=== PATIENT | female | born 1990 | race Caucasian/White ===

== ENCOUNTER → 2018-03-08 16:07 | Outpatient (CLI) | payer BC, SELFPAY ==
[2018-03-08 15:12] VITALS: BMI 26.6
[2018-03-08 17:28] LABS: Progesterone Level 1.03 ng/mL (See Comment)
[2018-03-08 18:44] LABS: Follicle Stimulating Hormone 4.8 mIU/mL; T4 Free Direct 0.92 ng/dL (0.76-1.46); Thyroid Stim Hormone (TSH) 2.81 uIU/mL (0.358-3.74)
[2018-03-10 15:35] LABS: HPV Reflexed? NOT INDICATED
[2018-03-11 07:42] LABS: Testosterone Free 6.2 pg/mL (0.0-4.2)
--- OUTSIDE RECORDS SUMMARY | 2018-04-25 01:10 | XMS RPT_ITS ---
:1990 Author Organization OHIP Care Team Providers Name Role Phone JOSH CONNER Attending Unavailable JOSH CONNER Referring Unavailable Nedra Amaya Attending Unavailable Primay Care Physicia, No Referring Unavailable Nedra Amaya Attending Unavailable MarcanthNedra siddiqui Referring Unavailable Primay Care Physicia, No Primary Care Unavailable PROBLEMS PROBLEMS DATE TYPE CONDITION / CODE ATTENDING STATUS SOURCE 03/09/2018 Unknown N91.1 - Secondary Jose Luis Active [facility] amenorrhea / [facility] N91.1(ICD-10) Hospital Repository 03/09/2018 Unknown Z12.4 - Encounter Jose Luis, Active [facility] for screening for [facility] malignant neoplasm [facility] of cervix / Repository Z12.4(ICD-10) 03/08/2018 Unknown Z01.411 - Encounter Jose Luis Active [facility] for gynecological [facility] (general) (routine) Repository with abnormal findings / Z01.411(ICD-10) 03/08/2018 Unknown Z34.90 - Encounter Jose Luis Active [facility] for supervision of [facility] normal , Hospital unspecified, Repository unspecified trimester / Z34.90(ICD-10) 12/24/2017 Active Encounter for NA Active [facility] general adult [facility] medical examination Repository without abnormal findings / Z00.00(ICD-10) 12/09/2017 Active Unknown / JOSH CONNER Active [facility] UNK(Unknown) R [facility] Repository PROCEDURES PROCEDURES No Procedure Records FoundRESULTS RESULTS PROGESTERONE LEVEL Collected: 03/08/2018 Status: F Source: [place] 4:14 PM [facility] REPOSITORY TYPE CODE TESTS RESULT OUT OF REFERENCE UNITS RANGE LAB L509.4001 See Comment ng/mL Progesterone Normal 1.03 Result Comment: Progesterone Reference Table: UNITS Female: Follicular 0.15 - 1.40 ng/mL Luteal 3.34 - 25.56 ng/mL Mid-luteal 4.44 - 28.03 ng/mL Postmenopausal 0.0 - 0.73 ng/mL : 1st Trimester 11.22 - 90.00 ng/mL 2nd Trimester 25.55 - 89.40 ng/mL 3rd Trimester 48.40 -422.50 ng/mL Performed By: #### L509.4001 #### [facility] [address] [place], [address] THYROID STIM HORMONE Collected: 03/08/2018 Status: F Source: JOVITA (TSH) 4:14 PM [facility] REPOSITORY TYPE CODE TESTS RESULT OUT OF RANGE REFERENCE UNITS LAB L501.9520 0.358-3.74 uIU/mL Normal TSH 2.81 Performed By: #### L501.9520, L506.0400, L3100.5125, L3300.1750 #### [facility] [address] [place], [address] T4 FREE DIRECT Collected: 03/08/2018 Status: F Source: [place]OV[place] 4:14 PM [facility] REPOSITORY TYPE CODE TESTS RESULT OUT OF RANGE REFERENCE UNITS LAB L506.0400 0.76-1.46 ng/dL Normal T4 FREE 0.92 DIRECT Performed By: #### L501.9520, L506.0400, L3100.5125, L3300.1750 #### [facility] [address] [place], [address] FOLLICLE STIMULATING Collected: 03/08/2018 Status: F Source: JOVITA HORMONE 4:14 PM [facility] REPOSITORY TYPE CODE TESTS RESULT OUT OF RANGE REFERENCE UNITS LAB L3100.5125 mIU/mL Normal FSH 4.8 Result Comment: NORMAL REFERENCE RANGES FEMALE FOLLICULAR 2.3 - 12.6 mIU/mL MID-CYCLE PEAK 5.2 - 17.5 mIU/mL LUTEAL 1.7 - 12.9 mIU/mL POST-MENOPAUSAL ON MHT 5.9 - 72.8 mIU/mL NOT ON MHT 12.7 - 132.2 mlU/mL MALE 0.7 - 10.8 mIU/mL NEW TEST METHOD AND REFERENCE RANGES AUGUST 18, 2011 Performed By: #### L501.9520, L506.0400, L3100.5125, L3300.1750 #### [facility] [address] [place], [place], [id number] ESTRADIOL Collected: 03/08/2018 Status: F Source: [place] 4:14 PM [facility] REPOSITORY TYPE CODE TESTS RESULT OUT OF RANGE REFERENCE UNITS LAB L3300.1750 pg/mL Normal ESTRADIOL 62.0 Result Comment: NORMAL REFERENCE RANGES FEMALE FOLLICULAR 21.4 - 164.8 pg/mL MID-CYCLE PEAK 49.9 - 367.2 pg/mL LUTEAL 40.2 - 259.0 pg/mL POST-MENOPAUSAL ON MHT <11.0 - 462.1 pg/mL NOT ON MHT <11.0 - 58.3 pg/mL MALE <11.0 - 52.5 pg/mL NOTE: [facility] HAS CONFIRMED THE DRUG FULVETRANT (FASLODEX) MAY CAUSE FALSELY ELEVATED ESTRADIOL RESULTS WHEN USING THIS TEST METHOD. IF PATIENT IS TAKING FULVESTRANT AN ALTERNATIVE METHOD SHOULD BE USED TO DETERMINE ESTRADIOL CONCENTRATION. Performed By: #### L501.9520, L506.0400, L3100.5125, L3300.1750 #### [facility] [address] [place], [place], [address] TESTOSTERONE FREE Collected: 03/08/2018 Status: F Source: [place] 4:14 PM [facility] REPOSITORY TYPE CODE TESTS RESULT OUT OF REFERENCE UNITS RANGE LAB L3400.4800 0.0-4.2 pg/mL High TEST FR 6.2 [id number] Result Comment: Performed at: BN - [facility] [address] [id number] [place] Baker: Thomas Lugo MD, Phone: [phone] Performed By: #### L3400.4800 #### [facility] (refer to report for specific site) refer to report for address and phone number MARKER DELIVERY OFFICE VISIT Observed: 03/08/2018 Status: F Source: [place] REPORT 3:50 PM [facility] REPOSITORY [facility] [address] [place] [address] OFFICE VISIT Date of Service: 03/08/18 MR#: [id number] Acct: [id number] Name: NO OLIVERA Rep #: [id number] : 1990 Provider: Nedra Amaya MD Age/Sex: 27/F Location: [facility] Status: Signed Intake Vital Signs03/08/18 Height 5 ft 3 in 03/08/18 Weight: 150 lb 6 oz 03/08/18 Body Mass Index (BMI) 26.6 03/08/18 Blood Pressure 118/78 Intake Visit Reasons: ANNUAL Assembler Cards And Announcements Required: No Is patient in pain?: No Allergies amoxicillin Adverse Reaction (Intermediate, Verified 03/08/18 15:14) rash sulfamethoxazole [From Septra] Adverse Reaction (Intermediate, Verified 03/08/18 15:14) rash trimethoprim [From Septra] Adverse Reaction (Intermediate, Verified 03/08/18 15:14) rash Medications medroxyprogesterone 5 mg tablet 5 mg PO QDAY 5 Days #5 tab 03/08/18 [Rx Confirmed 03/08/18] Is last menstrual period known: No Post menopausal: No Patient : No : No Nurse's Note: Pt. states she stopped taking the BC pill about 7 months ago and has only had 1 period since. PFSH Surgical History H/O knee surgery (Acute) Family History Grandfather Myocardial infarction Social History current occupational status: employed current occupation: [employer] Smoking Status: Never smoker alcohol intake: never substance use type: does not use seatbelt use: always do you feel safe at home: Yes additional social history: [employer] Pregancy History 0 Elective abortions Hx Para Spontaneous abortions HPI ANNUAL: Details: NO OLIVERA is a 27 year old who presents for annual exam. she has a history of oligomenorrhea. she has been off an ocp x 7 months with no menses. Last PAP: 1 year ago seen at [facility] History of abnormal PAP: yes mild in past Female Reproductive History Cycle Length: >35 Questions: Metorrhagia: Yes, Sexually active: Yes, Dyspareunia: No, PCB: No Menopausal Symptoms: No hot flashes, No night sweats, No weight change, No mood changes, No difficulty concentrating, No sleep problems, No change in libido ROS Const Constitutional: Reports as per HPI; denies poor appetite, fatigue, increased appetite, weight gain, weight loss or night sweats Cardio Card: Denies chest pain Resp Resp: Denies dyspnea or cough GI GI: Reports as per HPI; denies bloating, abdominal pain, constipation, vomiting or nausea : Reports as per HPI and other; denies blood in urine, vaginal odor, vaginal itching, vaginal dryness, vaginal discharge, urinary urgency, urinary incontinence, urinary frequency, pelvic pain, painful urination, difficulty urinating, prolapse symptoms, nipple discharge or hot flashes Skin Skin/Breast: Denies breast pain, breast skin changes, nipple discharge, breast lump or changing lesions Psych Psych: Denies difficulty concentrating or change in sex drive Exam Const General: cooperative, healthy appearing, comfortable, no acute distress, well developed, well groomed [facility] Head: normal to inspection, normocephalic Ears: hearing grossly normal bilaterally, external ears normal Nose: external nose normal Face and sinus: normal facial exam Neck Neck: normal visual inspection, full ROM, no lymphadenopathy Thyroid: thyroid normal Chest Chest palpation AND inspection: normal inspection of the chest Breast inspection: normal inspection of the breasts, normal inspection of the axillae Breast palpation: normal palpation of the breasts, normal palpation of the axillae, no axillary lymphadenopathy Resp Effort AND Inspection: normal respiratory effort GI Inspection: normal to inspection, non-distended Palpation: no guarding, soft, no hepatosplenomegaly General: bladder normal to palpation External Female Exam: normal external appearance, normal appearance of the urethra, no lesions Urethra: normal appearance of the urethra, normal palpation Speculum Exam - Vagina: normal appearance of the vagina, normal vaginal discharge Speculum Exam - Cervix: normal appearance of the cervix, no cervical discharge, no lesions, nontender Bimanual Exam- Vagina AND Uterus: No cervical tenderness, normal bimanual exam, uterine size normal, bladder normal to palpation, uterine mobility normal, uterine consistency normal, uterus non-tender, no cervical motion tenderness Bimanual Exam- Adnexa, other: normal adnexae, no adnexal masses, adnexae non-tender Skin General: no rashes or lesions noted Neuro General: alert, moves all extremities, no focal motor deficits Extrem General: no pedal edema, normal to inspection Psych Appearance: grossly normal Mental Status: mental status grossly normal Affect: normal affect Speech and Movement: speech and movement normal Attitude: cooperative Assessment AND Plan Problems 1. Secondary amenorrhea N91.1 2. Encounter for gynecological examination with abnormal finding Z01.411 Plan Cervical cancer screening: pap done Breast cancer screening: clinical STD prevention and contraceptive options including their risks, benefits, and alternatives were reviewed with the patient and she chooses: [ ] Encouraged maintenance of a healthy weight and active lifestyle and handout given. Calcium/vitamin D recommendations provided. Annual exam handout including recommendations for good health guidelines and basic screening information given. Problem list up to date, see problem list details for any additional plan information. follow up in one year for annual health maintenance exam or sooner if needed. Orders Orders: Medications New: medroxyprogesterone if no menses by cycle day 35-40 ta5 mg PO QDAY 5 days 5 tabs 12RF ke provera Coding Level of Care Code Off vis,new,prev 18-39yrs Diagnoses Secondary amenorrhea N91.1 Encounter for gynecological examination with abnormal finding Z01.411 Gynecological examination findings: abnormal findings PRESENT 03/08/18 1550 <Electronically signed by Nedra Amaya MD> Date Nedra Amaya MD Cosigner Signature: Date (if applicable) CC: PAP I-G W/RFX Collected: 03/08/2018 Status: F Source: JOVITA HRHPV-APTIMA 2:30 PM [facility] REPOSITORY Order Comment: CYTOLOGY INFORMATION: - CLINICAL INFORMATION: ANNUAL - DATE LMP/MENOPAUSE: N/A - COLLECTION VIAL: Thin Prep Vial - FARM HELPER SOURCE: CERVICAL - COLLECTION TECHNIQUE: CX BROOM ONLY Specimen Comment: [id number] Specimen Comment: Source.............Cervix Specimen Comment: No. of containers..01 ThinPrep Vial TYPE CODE TESTS RESULT OUT OF RANGE REFERENCE UNITS LAB L7400.0800 . Normal DIAGN Comment Result Comment: NEGATIVE FOR INTRAEPITHELIAL LESION AND MALIGNANCY. LAB L7400.0900 . Normal ADEQ Comment Result Comment: Satisfactory for evaluation. Endocervical and/or squamous metaplastic cells (endocervical component) are present. LAB L7400.1400 . Normal PERFORM Comment Result Comment: Salena Kaur, Airline Station Agent (ASCP) LAB L7400.2575 . Normal TEST METHOD Comment Result Comment: This liquid based ThinPrep(R) pap test was screened with the use of an image guided system. LAB L7400.2600 . Normal . COMM LAB L7400.2700 . Normal PAPSMR Comment Result Comment: The Pap smear is a screening test designed to aid in the detection of premalignant and malignant conditions of the uterine cervix. It is not a diagnostic procedure and should not be used as the sole means of detecting cervical cancer. Both false-positive and false-negative reports do occur. LAB L7400.2800 . Normal HPV RFLX Comment Result Comment: The HPV DNA reflex criteria were not met with this specimen result therefore, no HPV testing was performed. Performed at: - [facility] [id number] Roll[place] Baker: Mercedes Shah MD, Phone: [phone] Performed By: #### L7400.0353 #### [facility] (refer to report for specific site) refer to report for address and phone number GROUP A STREP BY Collected: 01/19/2018 Status: F Source: [place] PCR 2:30 PM [facility] REPOSITORY TYPE CODE TESTS RESULT OUT OF REFERENCE UNITS RANGE LAB GASSRC Throat Swab GAS Specimen Source LAB PCRGAS Negative for Group A Strep Group A PCR Streptococcus by PCR. Result Comment: This test was developed and its performance characteristics determined by [facility]'s [facility] ([facility]). It has not been cleared or approved by the FDA. [facility] is regulated under CLIA as qualified to perform high-complexity testing. This test is used for clinical purposes. It should not be regarded as inv estigational or for research. Performed By: #### GASPCR #### [facility] [address] [place], [place] [address] PROGRESS Observed: 01/19/2018 Status: COMPLETED Source: [place] 2:17 PM [facility] REPOSITORY HNO ID: [id number] Author: Gissel Russell (Pa) Service: (none) Author Type: Physician Child Protective Investigator Type: Progress Notes Filed: 01/19/2018 2:35 PM Note Text: Subjective HPI HPI No Olivera is a 27 year old female who presents today for CC of throat pain and headaches that started Thursday. Notes that her and her noticed some spots on her tonsils. No history of recent strep or recurrent strep. Pt has tried advil, which helped the headaches to some degree. BP 104/66 Pulse 60 Temp 36.2 ?C (97.2 ?F) (Tympanic) Resp 16 Wt 69.1 kg (152 lb 6.4 oz) SpO2 97% BMI 27.00 kg/m? ALLERGIES Allergen Reactions - Amoxicillin Rash Pt. and Grandma usure of severity - Septra [Sulfamethox* Rash Pt. and Grandma unsure of severity. ACTIVE PROBLEM LIST (none) - all problems resolved or deleted Family History Problem Relation Age of Onset - Heart Paternal Grandfather fatal [place] @ 43yrs of age Social History Marital status: Spouse name: Vahid Years of education: 10 Number of children: 0 Occupational History Occupation Employer Comment [employer]* Social History Main Topics Smoking status: Never Smoker Smokeless tobacco: Never Used Alcohol use: No Drug use: No Sexual activity: Yes Partners with: Male control/protection: Pill Review of Systems Constitutional: Positive for diaphoresis (Burning up a couple nights ago- while sleeping). Negative for chills, fever and malaise/fatigue. HENT: Positive for sore throat. Negative for congestion, ear pain and sinus pain. Respiratory: Negative for cough, sputum production, shortness of breath and wheezing. Cardiovascular: Negative for chest pain. Neurological: Negative for headaches. Objective Physical Exam Constitutional: She is oriented to person, place, and time and well-developed, well-nourished, and in no distress. Vital signs are normal. HENT: Head: Normocephalic. Right Ear: Tympanic membrane, external ear and ear canal normal. No drainage. Tympanic membrane is not perforated, not erythematous, not retracted and not bulging. No middle ear effusion. Left Ear: Ear canal normal. No drainage. Tympanic membrane is not perforated, not erythematous, not retracted and not bulging. No middle ear effusion. Nose: No rhinorrhea. Right sinus exhibits no maxillary sinus tenderness and no frontal sinus tenderness. Left sinus exhibits no maxillary sinus tenderness and no frontal sinus tenderness. Mouth/Throat: Uvula is midline and mucous membranes are normal. Oropharyngeal exudate (Black speck noted on L tonsil), posterior oropharyngeal edema (Mildly inflamed tonsils (R>L) - with small cryptic like 'spots' noted on R tonsil) and posterior oropharyngeal erythema (Mildly injected) present. No tonsillar abscesses. Eyes: Conjunctivae and lids are normal. Cardiovascular: Normal rate, regular rhythm, S1 normal and S2 normal. Exam reveals no friction rub. Pulmonary/Chest: Effort normal and breath sounds normal. She has no wheezes. She has no rhonchi. She has no rales. Lymphadenopathy: Head (right side): No submental, no submandibular, no tonsillar, no preauricular, no posterior auricular and no occipital adenopathy present. Head (left side): No submental, no submandibular, no tonsillar, no preauricular, no posterior auricular and no occipital adenopathy present. Right cervical: No superficial cervical and no posterior cervical adenopathy present. Left cervical: No superficial cervical and no posterior cervical adenopathy present. Neurological: She is oriented to person, place, and time. ASSESSMENT/PLAN: 1. Acute pharyngitis, unspecified etiology - ICD9: 462, ICD10: J02.9 (primary diagnosis) - suspect viral - Rapid Strep negative in the office today and Throat culture pending - Discussed supportive care treatment with fluids, rest and analgesia. - The patient should follow up in one week if symptoms persist or worsen 2. Sore throat - ICD9: 462, ICD10: J02.9 - See above; Call back if drooling, increased temperature, symptoms of dehydration and/or still sick in one week - RAPID STREP TEST B/O - GROUP A STREPTOCOCCUS BY PCR Reviewed red flags with patient and when to seek care sooner. The patient indicates understanding of these issues and agrees with the plan. Gissel Russell PA-C CNOV Observed: 01/19/2018 Status: COMPLETED Source: [place] 2:15 PM [facility] REPOSITORY Office Visit ([facility]) JARODNO ([id number]) 1990 F Date Time Provider Department 01/19/18 2:15 PM GISSEL RUSSELL (YOVANI) [facility] During your visit today, we recorded the following information about you: Temperature Pulse Respiration Blood pressure 97.2 degrees 60/minute 16/minute 104/66 Weight 69.1 kg Gissel Russell PA-C 01/19/2018 2:35 PM Signed Subjective HPI HPI No Barahona Jarod is a 27 year old female who presents today for CC of throat pain and headaches that started Thursday. Notes that her and her noticed some spots on her tonsils. No history of recent strep or recurrent strep. Pt has tried advil, which helped the headaches to some degree. BP 104/66 Pulse 60 Temp 36.2 ?C (97.2 ?F) (Tympanic) Resp 16 Wt 69.1 kg (152 lb 6.4 oz) SpO2 97% BMI 27.00 kg/m? ALLERGIES Allergen Reactions - Amoxicillin Rash Pt. and Grandma usure of severity - Septra [Sulfamethox* Rash Pt. and Grandma unsure of severity. ACTIVE PROBLEM LIST (none) - all problems resolved or deleted Family History Problem Relation Age of Onset - Heart Paternal Grandfather fatal [place] @ 43yrs of age Social History Marital status: Spouse name: Vahid Years of education: 10 Number of children: 0 Occupational History Occupation Employer Comment [employer]* Social History Main Topics Smoking status: Never Smoker Smokeless tobacco: Never Used Alcohol use: No Drug use: No Sexual activity: Yes Partners with: Male control/protection: Pill Review of Systems Constitutional: Positive for diaphoresis (Burning up a couple nights ago- while sleeping). Negative for chills, fever and malaise/fatigue. HENT: Positive for sore throat. Negative for congestion, ear pain and sinus pain. Respiratory: Negative for cough, sputum production, shortness of breath and wheezing. Cardiovascular: Negative for chest pain. Neurological: Negative for headaches. Objective Physical Exam Constitutional: She is oriented to person, place, and time and well-developed, well-nourished, and in no distress. Vital signs are normal. HENT: Head: Normocephalic. Right Ear: Tympanic membrane, external ear and ear canal normal. No drainage. Tympanic membrane is not perforated, not erythematous, not retracted and not bulging. No middle ear effusion. Left Ear: Ear canal normal. No drainage. Tympanic membrane is not perforated, not erythematous, not retracted and not bulging. No middle ear effusion. Nose: No rhinorrhea. Right sinus exhibits no maxillary sinus tenderness and no frontal sinus tenderness. Left sinus exhibits no maxillary sinus tenderness and no frontal sinus tenderness. Mouth/Throat: Uvula is midline and mucous membranes are normal. Oropharyngeal exudate (Black speck noted on L tonsil), posterior oropharyngeal edema (Mildly inflamed tonsils (R>L) - with small cryptic like 'spots' noted on R tonsil) and posterior oropharyngeal erythema (Mildly injected) present. No tonsillar abscesses. Eyes: Conjunctivae and lids are normal. Cardiovascular: Normal rate, regular rhythm, S1 normal and S2 normal. Exam reveals no friction rub. Pulmonary/Chest: Effort normal and breath sounds normal. She has no wheezes. She has no rhonchi. She has no rales. Lymphadenopathy: Head (right side): No submental, no submandibular, no tonsillar, no preauricular, no posterior auricular and no occipital adenopathy present. Head (left side): No submental, no submandibular, no tonsillar, no preauricular, no posterior auricular and no occipital adenopathy present. Right cervical: No superficial cervical and no posterior cervical adenopathy present. Left cervical: No superficial cervical and no posterior cervical adenopathy present. Neurological: She is oriented to person, place, and time. ASSESSMENT/PLAN: 1. Acute pharyngitis, unspecified etiology - ICD9: 462, ICD10: J02.9 (primary diagnosis) - suspect viral - Rapid Strep negative in the office today and Throat culture pending - Discussed supportive care treatment with fluids, rest and analgesia. - The patient should follow up in one week if symptoms persist or worsen 2. Sore throat - ICD9: 462, ICD10: J02.9 - See above; Call back if drooling, increased temperature, symptoms of dehydration and/or still sick in one week - RAPID STREP TEST B/O - GROUP A STREPTOCOCCUS BY PCR Reviewed red flags with patient and when to seek care sooner. The patient indicates understanding of these issues and agrees with the plan. ROBERTO Garcia PA-C 01/19/2018 2:29 PM Signed PHARYNGITIS: Inflammation and infection of the pharynx that can be caused by a variety of germs. TREATMENT General Measures: - Laboratory throat culture and blood count may be done to determine type of infection - Home care is usually sufficient - Hospitalization for pharyngitis caused by diphtheria or hemophilus bacteria - Use gargles to relieve throat pain. Prepare double-strength tea, hot or cold, or a salt-water solution (1 teaspoon salt in 8 oz. warm water). Use to gargle as often as you wish - Use a cool-mist, ultrasonic humidifier to increase air moisture. This will relieve the dry, tight feeling in the throat. Clean humidifier daily - If the glands are large and tender, apply moist, warm soaks at least 4 times a day for 30 to 60 minutes. The compresses will be more effective if they are kept warm. Be careful not to burn the skin. - Replace your toothbrush. It may harbor germs. - Until infection is gone, use separate washcloths; don't share food. Medication: - For minor discomfort, you may use non-prescription drugs such as acetaminophen. Don't give aspirin to a child for any viral illness. Studies link its use with the development of Fara's syndrome. - Non-prescription throat lozenges may help ease discomfort. - Antibiotics or antifungal agents to fight bacterial or fungal infections. Be sure to finish entire course of prescribed antibiotics to avoid complications to heart or kidney. Diet: - Extra fluids are necessary. Drink at least 8 glasses of fluid daily, more for high fevers. - If swallowing solid food is painful, try a liquid or soft diet for a few days. Notify your primary care physician's office or go to the nearest emergency room if the following occur during treatment: Breathing or swallowing difficulty Fever; severe headache Thick mucus drainage from the nose Cough that produces green, yellow, brown, or bloody sputum Skin rash Dark urine Chest pain Referring Provider: SELF [200] Allergies As of Date: 01/19/2018 Noted Allergy Reaction AMOXICILLIN 12/25/2004 2 - Rash Comments: Pt. and Judson usure of severity SEPTRA (SULFAMETHOXAZOLE-TRIMETHO*12/25/2004 2 - Rash Comments: Pt. and Judson unsure of severity. 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 TREATMENT General Measures: - Laboratory throat culture and blood count may be done to determine type of infection - Home care is usually sufficient - Hospitalization for pharyngitis caused by diphtheria or hemophilus bacteria - Use gargles to relieve throat pain. Prepare double-strength tea, hot or cold, or a salt-water solution (1 teaspoon salt in 8 oz. warm water). Use to gargle as often as you wish - Use a cool-mist, ultrasonic humidifier to increase air moisture. This will relieve the dry, tight feeling in the throat. Clean humidifier daily - If the glands are large and tender, apply moist, warm soaks at least 4 times a day for 30 to 60 minutes. The compresses will be more effective if they are kept warm. Be careful not to burn the skin. - Replace your toothbrush. It may harbor germs. - Until infection is gone, use separate washcloths; don't share food. Medication: - For minor discomfort, you may use non-prescription drugs such as acetaminophen. Don't give aspirin to a child for any viral illness. Studies link its use with the development of Fara's syndrome. - Non-prescription throat lozenges may help ease discomfort. - Antibiotics or antifungal agents to fight bacterial or fungal infections. Be sure to finish entire course of prescribed antibiotics to avoid complications to heart or kidney. Diet: - Extra fluids are necessary. Drink at least 8 glasses of fluid daily, more for high fevers. - If swallowing solid food is painful, try a liquid or soft diet for a few days. Notify your primary care physician's office or go to the nearest emergency room if the following occur during treatment: Breathing or swallowing difficulty Fever; severe headache Thick mucus drainage from the nose Cough that produces green, yellow, brown, or bloody sputum Skin rash Dark urine Chest pain Encounter Status:Closed by GISSEL RUSSELL on 01/19/18 GLUCOSE Collected: 12/24/2017 Status: F Source: [place] 11:13 AM [facility] REPOSITORY TYPE CODE TESTS RESULT OUT OF REFERENCE UNITS RANGE LAB GLU 74-99 mg/dL Glucose 77 Result Comment: The [place] Diabetes Association (ADA) provides guidance for cutoff values for fasting glucose and random glucose. The ADA defines fasting as no caloric intake for at least 8 hours. Fas ting plasma glucose results between 100 to 125 mg/dL indicate increased risk for diabetes (prediabetes). Fasting plasma glucose results greater than or equal to 126 mg/dL meet the criteria for diagnosis of diabetes. In the absence of unequivocal hyperglycemia, results should be confirmed by repeat testing. In a patient with classic symptoms of hyperglycemia or hyperglycemic crisis, random plasma glucose results greater than or equal to 200 mg/dL meet the criteria for diagnosis of diabetes. Reference: Standards of Medical Care in Diabetes 2016, [place] Diabetes Association. Diabetes Care. 2016.39(Suppl 1). Performed By: #### GLU, LIPB #### [facility] [address] [place], [place] [address] LIPID PANEL, BASIC Collected: 12/24/2017 Status: F Source: [place] 11:13 AM [facility] REPOSITORY TYPE CODE TESTS RESULT OUT OF REFERENCE UNITS RANGE LAB CHOL <200 mg/dL Cholesterol 151 Result Comment: <200 mg/dL, Desirable 200-239 mg/dL, Borderline high >239 mg/dL, High LAB TRIGLY <150 mg/dL Triglyceride 29 Result Comment: <150 mg/dL, Normal 150-199 mg/dL, Borderline high 200-499 mg/dL, High >499 mg/dL, Very high LAB HDL >39 mg/dL HDL-Cholesterol 60 Result Comment: 40-59 mg/dL, Acceptable >59 mg/dL, High: Negative risk factor for coronary heart disease <40 mg/dL, Low: Positive risk factor for coronary heart disease LAB LDL <100 mg/dL LDL-Cholesterol 85 Result Comment: <100 mg/dL, Optimal 100-129 mg/dL, Near optimal/above optimal 130-159 mg/dL, Borderline high 160-189 mg/dL, High >189 mg/dL, Very high Secondary prevention optimal LDL Cholesterol levels are recommended to be < 70 mg/dL LAB NONHDL <130 mg/dL Non HDL Cholesterol 91 Result Comment: <130 mg/dL, Optimal 130-159 mg/dL, Near optimal/above optimal 160-189 mg/dL, Borderline high 190-219 mg/dL, High >219 mg/dL, Very high Secondary prevention optimal non HDL Cholesterol levels are recommended to be < 100 mg/dL LAB FT hrs Fasting Time 12 LAB VLDL <30 mg/dL VLDL Cholesterol 6 LAB TCHDL <5.10 TC:HDL Ratio 2.52 LAB LDLHDL <2.54 LDL:HDL Ratio 1.42 Result Comment: Reference: 1. National Cholesterol Education Program ATP III Guideline At-A-Glance Quick Desk Reference: National Heart, Lung, and Blood Cyrus. National Institutes of Health. 2001: NIH Publication No. 01-3305. 2. An International Atherosclerosis Society position paper: global recommendations for the management of dyslipidemia: executive summary, Atherosclerosis. 2014: 232(2):410-413. Performed By: #### GLU, LIPB #### [facility] [address] [place] [id number] PROGRESS Observed: 12/09/2017 Status: COMPLETED Source: [place] 4:58 PM [facility] REPOSITORY HNO ID: [id number] Author: Josh Conner Service: (none) Author Type: Physician Type: Progress Notes Filed: 12/10/2017 8:16 AM Note Text: Chief Complaint Patient presents with: Physical: forms for work HPI No Olivera is a 27 year old female who presents here today for a routine physical for work.. 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 No other health problems. ACTIVE PROBLEM LIST (none) - all problems resolved or deleted she has come off control and has yet to Past medical history, appointments, medications, allergies reviewed. Previous Medical History PAST MEDICAL HISTORY Diagnosis Date - Exercise induced bronchospasm ASTHMA EXERCISE INDUCE BRONCHOSPASM - PMH - PAST MEDICAL HISTORY OF Color Vision - Normal Previous Surgical History PAST SURGICAL HISTORY Procedure Laterality Date - PAST SURGICAL HISTORY OF Removal of glass left knee Family History FAMILY HISTORY Problem Relation Age of Onset - Heart Paternal Grandfather fatal [place] @ 43yrs of age Patient Allergies ALLERGIES Allergen Reactions - Amoxicillin Rash Pt. and Grandma usure of severity - Septra [Sulfamethox* Rash Pt. and Grandma unsure of severity. Current Medications Current Outpatient Prescriptions on File Prior to Visit: norgestimate 0.25 mg-ethinyl estradiol 35 mcg (SPRINTEC) 0.25- 35 mg-mcg per tablet Take 1 tablet by mouth once daily. (Patient not taking: Reported on 12/09/2017 ) No current facility-administered medications on file prior to visit. Social History Social History Marital status: Spouse name: Vahid Years of education: 10 Number of children: 0 Occupational History Occupation Employer Comment [employer] Social History Main Topics Smoking status: Never Smoker Smokeless tobacco: Never Used Alcohol use: No Drug use: No Sexual activity: Yes Partners with: Male control/protection: Pill .ROS: General: Feels well, no weight changes, fever, chills. HEENT: No sinus congestion, earache, sore throat. Cardiac: No chest pain, palpitations, shortness of breath Resp: No cough, wheeze. GI: No reflux symptoms, food intolerance, bowel changes. : No urinary frequency, dysuria. MS: No pain or joint complaints. PHYSICAL EXAMINATION BP 110/64 Pulse 65 Ht 160 cm (5' 3) Wt 69.4 kg (153 lb) LMP 08/10/2017 BMI 27.10 kg/m? General: Alert and oriented, no distress, pleasant and cooperative. Heart: Regular, normal S1 and S2, no murmurs, rubs, or gallops Lungs: Clear to auscultation bilaterally Abdomen: Benign Extremities: Feet/ankles without edema, posterior tibial pulses full and symmetrical Health Maintenance List DTAP,TDAP,TD(7 - Td) due on 10/29/2015 INFLUENZA(1) due on 11/28/2017 PAP EVERY 3 YEARS (21-30 YEAR OLDS) due on 01/29/2019 HPV VACCINE Completed Data reviewed Lab Results Component Value Date/Time CHOL 190 03/22/2013 11:08 AM HDL 67 03/22/2013 11:08 AM LDL 94 03/22/2013 11:08 AM Assessment/Plan: (Z00.00) Well adult exam (primary encounter diagnosis) Comment: she's in good health. Plan: exam as her employer requires. She's f/u with the ob on the menses. Office Visit on 12/09/17 -LIPID PANEL BASIC -GLUCOSE RANDOM BLD No medications selected for refill. RTO: as above Josh Conner MD CNOV Observed: 12/09/2017 Status: COMPLETED Source: [place] 4:20 PM [facility] REPOSITORY Office Visit (FPWADS) NO OLIVERA ([id number]) 1990 F Date Time Provider Department 12/09/17 4:20 PM JOSH CONNER During your visit today, we recorded the following information about you: Pulse Blood pressure Weight Height 65/minute 110/64 69.4 kg 1.6 m Last Period 08/10/17 Josh Conner MD 12/10/2017 8:16 AM Signed Chief Complaint Patient presents with: Physical: forms for work HPI No Olivera is a 27 year old female who presents here today for a routine physical for work.. 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 No other health problems. ACTIVE PROBLEM LIST (none) - all problems resolved or deleted she has come off control and has yet to Past medical history, appointments, medications, allergies reviewed. Previous Medical History PAST MEDICAL HISTORY Diagnosis Date - Exercise induced bronchospasm ASTHMA EXERCISE INDUCE BRONCHOSPASM - PMH - PAST MEDICAL HISTORY OF Color Vision - Normal Previous Surgical History PAST SURGICAL HISTORY Procedure Laterality Date - PAST SURGICAL HISTORY OF Removal of glass left knee Family History FAMILY HISTORY Problem Relation Age of Onset - Heart Paternal Grandfather fatal [place] @ 43yrs of age Patient Allergies ALLERGIES Allergen Reactions - Amoxicillin Rash Pt. and Grandma usure of severity - Septra [Sulfamethox* Rash Pt. and Grandma unsure of severity. Current Medications Current Outpatient Prescriptions on File Prior to Visit: norgestimate 0.25 mg-ethinyl estradiol 35 mcg (SPRINTEC) 0.25- 35 mg-mcg per tablet Take 1 tablet by mouth once daily. (Patient not taking: Reported on 12/09/2017 ) No current facility-administered medications on file prior to visit. Social History Social History Marital status: Spouse name: Vahid Years of education: 10 Number of children: 0 Occupational History Occupation Employer Comment [employer]* Social History Main Topics Smoking status: Never Smoker Smokeless tobacco: Never Used Alcohol use: No Drug use: No Sexual activity: Yes Partners with: Male control/protection: Pill .ROS: General: Feels well, no weight changes, fever, chills. HEENT: No sinus congestion, earache, sore throat. Cardiac: No chest pain, palpitations, shortness of breath Resp: No cough, wheeze. GI: No reflux symptoms, food intolerance, bowel changes. : No urinary frequency, dysuria. MS: No pain or joint complaints. PHYSICAL EXAMINATION BP 110/64 Pulse 65 Ht 160 cm (5' 3) Wt 69.4 kg (153 lb) LMP 08/10/2017 BMI 27.10 kg/m? General: Alert and oriented, no distress, pleasant and cooperative. Heart: Regular, normal S1 and S2, no murmurs, rubs, or gallops Lungs: Clear to auscultation bilaterally Abdomen: Benign Extremities: Feet/ankles without edema, posterior tibial pulses full and symmetrical Health Maintenance List DTAP,TDAP,TD(7 - Td) due on 10/29/2015 INFLUENZA(1) due on 11/28/2017 PAP EVERY 3 YEARS (21-30 YEAR OLDS) due on 01/29/2019 HPV VACCINE Completed Data reviewed Lab Results Component Value Date/Time CHOL 190 03/22/2013 11:08 AM HDL 67 03/22/2013 11:08 AM LDL 94 03/22/2013 11:08 AM Assessment/Plan: (Z00.00) Well adult exam (primary encounter diagnosis) Comment: she's in good health. Plan: exam as her employer requires. She's f/u with the ob on the menses. Office Visit on 12/09/17 -LIPID PANEL BASIC -GLUCOSE RANDOM BLD No medications selected for refill. RTO: as above Josh Conner MD Referring Provider: SELF [200] Allergies As of Date: 12/09/2017 Noted Allergy Reaction AMOXICILLIN 12/25/2004 2 - Rash Comments: Pt. and Grandma usure of severity SEPTRA (SULFAMETHOXAZOLE-TRIMETHO*12/25/2004 2 - Rash Comments: Pt. and Grandma unsure of severity. 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 Patient not taking: Reported on 12/09/2017 Disc: Reason for discontinue is not on file. Encounter Status:Closed by FATIMAH CONNER MD on 12/10/17 CNCO Observed: 10/12/2017 Status: COMPLETED Source: [place] 12:00 AM [facility] REPOSITORY Letter Text Jovita Ean Quijano D.O. Department of Pediatrics [address] [place] [address] October 12, 2017 No Olivera To Whom It May Concern: Please allow No to have an adjustable desk for standing to support her back and posture Sincerely, ALLERGIES ALLERGIES DATE TYPE / CODE NAME / CODE REACTION SEVERITY SOURCE 03/08/2018 Drug sulfamethoxazole/F Rash [place] [facility]416 [id number](RXNORM) [facility] [id number]([facility] ED CT) Repository 03/08/2018 Drug trimethoprim/F0060 Rash [place] [facility]416 53187(RXNORM) [facility] 397123([facility] ED CT) Repository 03/08/2018 Drug amoxicillin/F05216 Rash [place] [facility]416 3675(RXNORM) [facility] [id number]([facility] ED CT) Repository 12/25/2004 DRUG AMOXICILLIN RASH [facility] INGREDI/[address] [id number](SN Repository ED CT) 12/25/2004 DRUG/[id number] SULFAMETHOXAZOLE-T RASH [facility] 003(SNOMED RIMETHOPRIM [address]) Repository ENCOUNTERS ENCOUNTERS ADMIT/DISCHARGE ACCOUNT ADMITTING ENCOUNTER LOCATION SOURCE NUMBER CLASS 03/08/2018 [id number] Ambulatory [facility] ing:LAB Repository 03/08/2018/03/08/20 [id number] Ambulatory BMSBuilding:B [address] Repository 01/19/2018/01/21/20 [id number] Ambulatory [address] Repository 12/24/2017/12/25/19 [id number] Ambulatory [address] Repository 12/09/2017/12/11/19 [id number] Ambulatory [address] Repository PAYERS PAYERS ENCOUNTER GUARANTOR PAYER SUBSCRIBER SOURCE 03/08/2018 NO T Primary NO Hussein [id number] XOCHITL Insurance:ANTHEMPolic MALTADOB: [facility] kamryn MANN Number: [id number] Hospital [address]Gez: 330 [id number] Repository [phone] () Date:[id number] [place] [address]NQ: 03/08/2018 Secondary NOT GIVENUNK Jovita Insurance:SELF PAY [facility] Number: Effective Repository Date:2018-03-08 03/08/2018 [facility] [place] [id number] XOCHITL Insurance:ANTHEMPolic MALTADOB: [facility] kamryn MANN y Number: [id number] Hospital [address]Rdc: 330 [id number] Repository [phone] () Date:[id number] [place] [address]GQ: 03/08/2018 Secondary NOT GIVENUNK J[place] Insurance:SELF PAY [facility] Number: Effective Repository Date:2018-03-08
== END ==
PROVIDERS: Referring Provider Obstetrics & Gynecology; Visit Provider Obstetrics & Gynecology
DX: Z12.4 Encounter for screening for malignant neoplasm of cervix (principal); N91.1 Secondary amenorrhea
CPT/HCPCS: 36415; 82670; 83001; 84144; 84402; 84439; 84443; 87624; 88175; G0145

== ENCOUNTER → 2018-04-22 14:43 | Outpatient (CLI) | payer BC, SELFPAY ==
[2018-03-08 15:12] VITALS: BMI 26.6
[2018-04-22 16:51] LABS: Progesterone Level 0.87 ng/mL (See Comment)
== END ==
PROVIDERS: Referring Provider Obstetrics & Gynecology; Visit Provider Obstetrics & Gynecology
DX: N91.1 Secondary amenorrhea (principal)
CPT/HCPCS: 36415; 84144

== ENCOUNTER → 2018-06-28 16:05 | Outpatient (CLI) | payer BC, SELFPAY ==
[2018-03-08 15:12] VITALS: BMI 26.6
[2018-06-28 17:53] LABS: Progesterone Level 0.56 ng/mL (See Comment)
== END ==
PROVIDERS: Referring Provider Obstetrics & Gynecology; Visit Provider Obstetrics & Gynecology
DX: N97.9 Female infertility, unspecified (principal)
CPT/HCPCS: 36415; 84144

== ENCOUNTER → 2018-11-19 15:08 | Outpatient (CLI) | payer BC, SELFPAY ==
[2018-03-08 15:12] VITALS: BMI 26.6
[2018-11-19 16:11] LABS: Hematocrit 43.5 % (37-47); Hemoglobin 14.4 g/dL (12.0-15.0); Mean Corp Hgb Conc 33.1 g/dL (32-36); Mean Corpuscular Hgb 30.6 pg (27.0-32.0); Mean Corpuscular Volume 92.6 fL (81-99); Mean Platelet Vol. 9.5 fl (6.2-12.0); Platelet Count 352 K/mm3 (150-450); RBC Distribution Width CV 11.9 % (11.6-14.6); White Blood Count 8.1 K/mm3 (4.4-11.0)
[2018-11-19 16:50] LABS: hCG Titer Quant., Serum < 1 mIU/mL (1-3)
[2018-11-19 17:07] LABS: Progesterone Level 0.47 ng/mL (See Comment); Vitamin D,25 Hydroxy 30.2 ng/mL (29.95-100.01)
[2018-11-19 17:19] LABS: AST(SGOT) 11 U/L (15-37); Alanine Aminotransfer ALT/SGPT 25 U/L (13-56); Alkaline Phosphatase 48 U/L (45-117); Anion Gap 8 (5-15); BUN 14 mg/dL (7-18); Bilirubin, Direct 0.09 mg/dL (0.00-0.30); Chloride 111 mmol/L (98-107); Creatinine, Serum 0.88 mg/dL (0.55-1.02); EST Glomerular Filtration Rate 83 mL/min (>60); Est Glom Filt Rate - Afr Amer 100 mL/min (>60); Estradiol 40.7 pg/mL; Follicle Stimulating Hormone 4.5 mIU/mL; Globulin 3.5 g/dL (2.2-4.2); Glucose 99 mg/dL (74-106); Luteinizing Hormone 6.4 mIU/mL; Phosphorus 2.9 mg/dL (2.5-4.9); Potassium 3.9 mmol/L (3.5-5.1); Prolactin 16.3 ng/mL; Protein, Total 7.5 g/dL (6.4-8.2); Sodium Level 142 mmol/L (136-145); T4 Free Direct 0.92 ng/dL (0.76-1.46); Thyroid Stim Hormone (TSH) 1.16 uIU/mL (0.358-3.74)
[2018-11-24 17:02] LABS: 17-Hydroxyprogesterone 80 ng/dL (.)
[2018-11-27 12:07] LABS: DHEA Sulfate 416.4 ug/dL (84.8-378.0)
[2018-11-28 09:14] LABS: Anti-Mullerian Hormone,Serum 23.2 ng/mL (.); V-Zoster IgG (Immunity) 1983 index (Immune >165)
== END ==
PROVIDERS: Referring Provider Obstetrics & Gynecology Reproductive Endocrinology; Visit Provider Obstetrics & Gynecology Reproductive Endocrinology
DX: Z01.83 Encounter for blood typing (principal); Z31.41 Encounter for fertility testing; Z11.59 Encounter for screening for other viral diseases; Z11.9 Encounter for screening for infectious and parasitic diseases, unspecified; Z32.00 Encounter for pregnancy test, result unknown; N91.4 Secondary oligomenorrhea; E55.9 Vitamin D deficiency, unspecified
CPT/HCPCS: 80048; 80076; 82306; 82627; 82670; 83001; 83002; 83498; 83516; 84100; 84144; 84146; 84403; 84439; 84443; 84702; 85027; 86762; 86787; 86900; 86901; 82626

== ENCOUNTER → 2018-12-31 12:53 | Outpatient (CLI) | payer BC, SELFPAY ==
[2018-03-08 15:12] VITALS: BMI 26.6
== END ==
PROVIDERS: Referring Provider Psychiatry & Neurology Geriatric Psychiatry; Visit Provider Psychiatry & Neurology Geriatric Psychiatry
DX: E28.2 Polycystic ovarian syndrome (principal)

== ENCOUNTER → 2019-01-04 07:15 | Outpatient (CLI) | payer BC, SELFPAY ==
[2018-03-08 15:12] VITALS: BMI 26.6
[2019-01-04 08:23] LABS: Glucose 75GTT - Fasting 94 mg/dL (70-99)
[2019-01-04 08:26] LABS: AST(SGOT) 10 U/L (15-37); Alanine Aminotransfer ALT/SGPT 20 U/L (13-56); Albumin, Serum 4.1 g/dL (3.2-5.0); Alkaline Phosphatase 51 U/L (45-117); Anion Gap 4 (5-15); BUN 12 mg/dL (7-18); BUN/Creat Ratio 14.5 RATIO (10-20); Calcium,Total 9.1 mg/dL (8.5-10.1); Chloride 108 mmol/L (98-107); Creatinine, Serum 0.83 mg/dL (0.55-1.02); EST Glomerular Filtration Rate 88 mL/min (>60); Est Glom Filt Rate - Afr Amer 106 mL/min (>60); Globulin 3.4 g/dL (2.2-4.2); Glucose 94 mg/dL (74-106); Phosphorus 3.6 mg/dL (2.5-4.9); Potassium 4.2 mmol/L (3.5-5.1); Protein, Total 7.5 g/dL (6.4-8.2); Sodium Level 139 mmol/L (136-145)
[2019-01-04 08:51] LABS: Insulin 9.8 mU/L (2.6-37.6)
[2019-01-04 09:09] LABS: Glucose 75GTT - 30 minutes 147 mg/dL (100-160)
[2019-01-04 10:26] LABS: Glucose 75GTT - 60 minutes 58 mg/dL (100-160)
[2019-01-04 10:29] LABS: Glucose 75GTT - 120 minutes 63 mg/dL (70-140)
== END ==
PROVIDERS: Referring Provider Psychiatry & Neurology Geriatric Psychiatry; Visit Provider Psychiatry & Neurology Geriatric Psychiatry
DX: E28.2 Polycystic ovarian syndrome (principal)
CPT/HCPCS: 36415; 80048; 80076; 82951; 82952; 83525; 84100

== ENCOUNTER → 2019-09-05 08:22 | Outpatient (CLI) | payer BC, SELFPAY ==
[2018-03-08 15:12] VITALS: BMI 26.6
[2019-09-05 09:00] LABS: Progesterone Level 21.62 ng/mL (See Comment)
[2019-09-05 09:08] LABS: Estradiol 159.4 pg/mL
== END ==
DX: E28.9 Ovarian dysfunction, unspecified (principal)
CPT/HCPCS: 36415; 82670; 84144

== ENCOUNTER → 2019-09-09 08:39 | Outpatient (CLI) | payer BC, SELFPAY ==
[2018-03-08 15:12] VITALS: BMI 26.6
[2019-09-09 09:20] LABS: Progesterone Level 24.24 ng/mL (See Comment); hCG Titer Quant., Serum 131 mIU/mL (1-3)
== END ==
DX: Z32.00 Encounter for pregnancy test, result unknown (principal)
CPT/HCPCS: 36415; 84144; 84702

== ENCOUNTER → 2019-09-12 08:14 | Outpatient (CLI) | payer BC, SELFPAY ==
[2018-03-08 15:12] VITALS: BMI 26.6
[2019-09-12 08:50] LABS: hCG Titer Quant., Serum 404 mIU/mL (1-3)
[2019-09-12 08:55] LABS: Estradiol 233.7 pg/mL
[2019-09-12 08:56] LABS: Progesterone Level 25.08 ng/mL (See Comment)
== END ==
DX: E28.9 Ovarian dysfunction, unspecified (principal); Z32.00 Encounter for pregnancy test, result unknown
CPT/HCPCS: 36415; 82670; 84144; 84702

== ENCOUNTER → 2019-09-19 08:06 | Outpatient (CLI) | payer BC, SELFPAY ==
[2018-03-08 15:12] VITALS: BMI 26.6
--- NOTE | 2019-09-19 08:08 | US_ITS ---
STUDY: FIRST TRIMESTER OBSTETRICAL ULTRASOUND REASON FOR EXAM: Female, 28 years old size and dates LMP: 08/17/2019 TECHNIQUE: Transvaginal TECHNICAL QUALITY: Adequate. PRIOR ULTRASOUND: None. FINDINGS: There is visualization of a single gestational sac in a normal intrauterine position. The mean sac diameter (MSD) measures 8.8 mm, indicating an estimated gestational age (EGA) of 5 weeks, 3 days. The gestational sac shape is within normal limits. There is no demonstrated yolk sac. The placenta is non-visualized. There is no demonstrated embryo ( pole). Given the size of the gestational sac, it is likely too early to determine viability. Recommend serial beta-hCG studies and follow-up ultrasound in 7-10 days to determine viability. The estimated gestation age (EGA) by LMP is 4 weeks, 5 days. The estimated date of delivery (OMARI) by LMP is 05/23/20. The estimated gestation age (EGA) by US is 5 weeks, 3 days. The estimated date of delivery (OMARI) by US is 05/18/20. The uterus measures 6.5 x 4.5 x 3.5 cm. There is no demonstrated uterine fibroid. The cervix is closed. The right ovary measures 3.7 x 2.6 x 3.0 cm. There is no right ovarian cyst. There is no visualized right adnexal mass or complex lesion. The left ovary measures 2.7 x 3.2 x 2.6 cm. There is no left ovarian cyst. There is no visualized left adnexal mass or complex lesion. There is no fluid in the cul de sac. There is a small subchronic hemorrhage measuring 1.2 x 0.9 x 0.6 cm. Close sonographic follow-up recommended to assure resolution US/Init OB < 14Wks US IMPRESSION: There is a normal appearing intrauterine gestational sac. However, there is no yolk sac, pole or heart rate yet identified. [place]-rump length measures only 5 weeks 3 days. It is likely too early to determine viability. Recommend serial beta hCGs and follow-up ultrasound in 7-10 days to determine viability. Small subchronic hemorrhage, follow-up recommended to assure resolution No suspicious adnexal mass or free fluid to suspect ectopic Electronically Signed: Kurt Ch MD at 8:59 EDT , Service support ,
[2019-09-19 09:07] LABS: Estradiol 232.9 pg/mL
[2019-09-19 09:18] LABS: Progesterone Level 39.96 ng/mL (See Comment)
[2019-09-19 09:37] LABS: hCG Titer Quant., Serum 6957 mIU/mL (1-3)
== END ==
DX: Z32.00 Encounter for pregnancy test, result unknown (principal)
CPT/HCPCS: 36415; 76801; 82670; 84144; 84702

== ENCOUNTER → 2019-09-26 07:59 | Outpatient (CLI) | payer BC, SELFPAY ==
[2018-03-08 15:12] VITALS: BMI 26.6
--- NOTE | 2019-09-26 08:21 | US_ITS ---
STUDY: FIRST TRIMESTER OBSTETRICAL ULTRASOUND REASON FOR EXAM: Female, 28 years old - f/u prev scan from last week LMP: August 17, 2019. TECHNIQUE: Transvaginal TECHNICAL QUALITY: Adequate. PRIOR ULTRASOUND: Comparison is made with prior examination dated September 19, 2019. FINDINGS: There is visualization of a single gestational sac in a normal intrauterine position. The mean sac diameter (MSD) measures 1.69 cm, indicating an estimated gestational age (EGA) of 6 weeks, 3 days. The gestational sac shape is within normal limits. There is a visualized yolk sac. The yolk sac measures 3.9 mm. The placenta is non-visualized. There is visualization of a live embryo. The crown-rump length (CRL) measures 4.3 mm, indicating an estimated gestational age (EGA) of 6 weeks, 2 days. There is demonstrated cardiac activity with a heart rate of 115 bpm. The estimated gestation age (EGA) by LMP is 5 weeks, 5 days. The estimated date of delivery (OMARI) by LMP is 2020. The estimated gestation age (EGA) by US is 6 weeks, 2 days. The estimated date of delivery (OMARI) by US is May 19, 2020. The uterus measures 7.6 cm x 5.6 cm x 3.8 cm. There is no demonstrated uterine fibroid. The cervix is closed. The subchorionic bleed has decreased in size. It presently measures 1.3 cm x 0.4 cm x 0.3 cm. The right ovary measures 3.8 cm x 2.6 cm x 3.3 cm. There is no right ovarian cyst. There is no visualized right adnexal mass or complex lesion. The left ovary measures 2.6 cm x 3.2 cm x 2.8 cm. There is no left ovarian cyst. There is no visualized left adnexal mass or complex lesion. There is no fluid in the cul de sac. US/Init OB < 14Wks US IMPRESSION: Single live intrauterine gestation with a mean gestational age of 6 weeks and 2 days. The subchorionic bleed has decreased in size. It presently measures 1.3 cm x 0.4 cm x 0.3 cm. Electronically Signed: James Gonzalez, at 9:46 EDT , Service support ,
[2019-09-26 09:16] LABS: Estradiol 371.2 pg/mL
[2019-09-26 09:17] LABS: Progesterone Level 30.18 ng/mL (See Comment)
== END ==
PROVIDERS: Referring Provider Obstetrics & Gynecology Reproductive Endocrinology; Visit Provider Obstetrics & Gynecology Reproductive Endocrinology
DX: O09.01 Supervision of pregnancy with history of infertility, first trimester (principal); Z3A.01 Less than 8 weeks gestation of pregnancy
CPT/HCPCS: 36415; 76801; 82670; 84144; 84702

== ENCOUNTER → 2019-10-18 15:37 | Outpatient (CLI) | payer BC, SELFPAY ==
[2019-09-26 14:51] VITALS: BMI 26.6
--- NOTE | 2019-10-18 15:38 | US_ITS ---
STUDY: FIRST TRIMESTER OBSTETRICAL ULTRASOUND REASON FOR EXAM: Female, 28 years old. Spotting. Viability. LMP: Unknown. TECHNIQUE: Transabdominal and Transvaginal PRIOR ULTRASOUND: 09/26/2019 FINDINGS: There is visualization of a single gestational sac in a normal intrauterine position. There is a visualized yolk sac. There is visualization of a live embryo. The crown-rump length (CRL) measures 2.53 cm, indicating an estimated gestational age (EGA) of weeks, 3 days. The mean sac diameter corresponds to 10 weeks and 4 days. The sonographic age is 10 weeks and 0 days. 3 estimated delivery date is 05/15/2020. There is demonstrated cardiac activity with a heart rate of 165 bpm. The uterus measures 11.3 x 3.8 x 4.2 cm. There is no demonstrated uterine fibroid. The cervix is closed. The right ovary measures 3.3 x 2.6 x 2.4 cm. There is no right ovarian cyst. There is no visualized right adnexal mass or complex lesion. The left ovary measures 3.5 x 3.3 x 1.9 cm. There is no left ovarian cyst. There is no visualized left adnexal mass or complex lesion. There is no fluid in the cul de sac. US/Init OB < 14Wks US IMPRESSION: Single live intrauterine gestation, as described above. Electronically Signed: Donavan Gaffney, at 15:08 EDT Tel , Service support ,
== END ==
PROVIDERS: Referring Provider Obstetrics & Gynecology; Visit Provider Obstetrics & Gynecology
DX: O20.0 Threatened abortion (principal); Z3A.00 Weeks of gestation of pregnancy not specified
CPT/HCPCS: 76801; 76817

== ENCOUNTER → 2019-10-27 12:43 | Outpatient (CLI) | payer BC, SELFPAY ==
[2019-10-27 12:35] VITALS: BMI 28.8
[2019-10-27 13:17] LABS: Absolute Lymphocyte Count 1.81 X10^3/uL (0.83-4.51); Absolute Neutrophil Count 8.6 X10^3/uL (2.0-7.7); Basophil# 0.04 X10^3/uL; Basophil% 0.4 % (0-1); Eosinophil# 0.12 X10^3/uL; Eosinophils% 1.1 % (0-5); Hemoglobin 13.7 g/dL (12.0-15.0); Lymphocyte # 1.81 X10^3/ul (4.0); Mean Corp Hgb Conc 34.3 g/dL (32-36); Mean Corpuscular Volume 90.5 fL (81-99); Mean Platelet Vol. 8.7 fl (6.2-12.0); Monocyte# 0.65 X10^3/uL; Monocyte% 5.7 % (0-10); NRBC Flagged by Analyzer 0 % (0-5); Neutrophil # 8.63 X10^3/uL (2.7-7.7); Neutrophil % 76.1 % (47-70); Platelet Count 357 K/mm3 (150-450); RBC Distribution Width CV 11.9 % (11.6-14.6); RBC Distribution Width SD 39.4 fl (35.1-43.9); Red Blood Count 4.42 M/mm3 (4.2-5.4); White Blood Count 11.3 K/mm3 (4.4-11.0)
[2019-10-27 14:01] LABS: Thyroid Stim Hormone (TSH) 1.38 uIU/mL (0.358-3.74)
[2019-10-27 14:31] LABS: HIV - WCH Non-Reactive (Nonreactive); Hepatitis B Surface Antigen Non-Reactive (Nonreactive); Hepatitis C Antibody Non-Reactive (Nonreactive); Rubella IgG 225.9 IU/mL
[2019-10-27 18:49] LABS: Amphetamine Urine VISTA NEGATIVE (<1000 ng/mL); Barbiturate Urine VISTA NEGATIVE (< 200 ng/mL); Benzodiazepine Urine VISTA NEGATIVE (< 200 ng/mL); Cocaine Urine VISTA NEGATIVE (< 300 ng/mL); Ecstacy Urine VISTA NEGATIVE (< 500 ng/mL); Methadone Urine VISTA NEGATIVE (< 300 ng/mL); PCP Urine VISTA NEGATIVE (< 25 ng/mL); THC Urine VISTA NEGATIVE (< 50 ng/mL); Vista UDS pH Range 5
[2019-10-27 22:35] LABS: Chlamydia Trachomatis by PCR Negative (Negative); Neisserai gonorrhoeae by PCR Negative (Negative); Probe Check PASS; Sample Adequacy Control PASS; Specimen Processing Control PASS
[2019-11-03 02:04] LABS: Rapid Plasmin Reagin (RPR) NONREACTIVE (NONREACTIVE)
== END ==
PROVIDERS: Referring Provider Obstetrics & Gynecology; Visit Provider Obstetrics & Gynecology
DX: Z34.90 Encounter for supervision of normal pregnancy, unspecified, unspecified trimester (principal)
CPT/HCPCS: 36415; 80307; 84439; 84443; 85025; 86592; 86703; 86762; 86803; 86850; 86900; 86901; 87086; 87340; 87491; 87591

== ENCOUNTER → 2020-02-14 08:52 | Outpatient (CLI) | payer BC, SELFPAY ==
[2020-02-01 08:47] VITALS: BMI 31.8
[2020-02-14 09:06] LABS: Absolute Lymphocyte Count 1.51 X10^3/uL (0.83-4.51); Absolute Neutrophil Count 7.7 X10^3/uL (2.0-7.7); Basophil# 0.03 X10^3/uL; Basophil% 0.3 % (0-1); Hematocrit 40.9 % (37-47); Hemoglobin 13.4 g/dL (12.0-15.0); Lymphocyte # 1.51 X10^3/ul (4.0); Lymphocyte % 15.4 % (19-41); Mean Corp Hgb Conc 32.8 g/dL (32-36); Mean Corpuscular Hgb 30.9 pg (27.0-32.0); Mean Corpuscular Volume 94.5 fL (81-99); Monocyte# 0.48 X10^3/uL; Monocyte% 4.9 % (0-10); NRBC Flagged by Analyzer 0 % (0-5); Neutrophil # 7.65 X10^3/uL (2.7-7.7); Neutrophil % 77.8 % (47-70); Platelet Count 319 K/mm3 (150-450); RBC Distribution Width CV 12.8 % (11.6-14.6); RBC Distribution Width SD 44.6 fl (35.1-43.9); Red Blood Count 4.33 M/mm3 (4.2-5.4); White Blood Count 9.8 K/mm3 (4.4-11.0)
[2020-02-14 09:31] LABS: Glucose Challenge Gest 1H 50g 117 mg/dL (70-140); Thyroid Stim Hormone (TSH) 2.97 uIU/mL (0.358-3.74)
== END ==
PROVIDERS: Referring Provider Obstetrics & Gynecology; Visit Provider Obstetrics & Gynecology
DX: O09.90 Supervision of high risk pregnancy, unspecified, unspecified trimester (principal); O99.280 Endocrine, nutritional and metabolic diseases complicating pregnancy, unspecified trimester; E07.9 Disorder of thyroid, unspecified; Z3A.00 Weeks of gestation of pregnancy not specified
CPT/HCPCS: 36415; 82950; 84439; 84443; 85025

== ENCOUNTER → 2020-02-22 13:57 | Outpatient (CLI) | payer BC, SELFPAY ==
[2020-02-14 09:08] VITALS: BMI 32.2
--- NOTE | 2020-02-22 14:00 | US_ITS ---
EXAM DESCRIPTION: OB ultrasound CLINICAL HISTORY: 29 years, GROWTH, Obstetrical screening. The gestation age based upon the LMP is 28 weeks, 1 days for an estimated due date of 05/15/2020. The gestational age based upon today''s ultrasound measurements is 27 weeks, 1 days for an estimated due date of 05/22/2020. TECHNIQUE: High-resolution transabdominal real-time sonography of the pelvis was performed. anatomy was assessed. COMPARISON: Previous ultrasound obtained on 09/26/2019. FINDINGS: There is a gravid uterus with a single intrauterine gestation in the transverse presentation. The cervical length is 3.4 cm. The placenta is anterior but not low lying in location with a Grade 2 echotexture. The cord inserts in the umbilicus and there is no evidence of placenta previa. Amniotic fluid index is within normal limits . The largest fluid pocket is 5.5 x 5.0 cm. motion and heart activity are demonstrated throughout the examination. Measured heart rate is 135 beats per minute. The anatomy was briefly assessed. A good and gastric air bubble was identified. The femurs were identified bilaterally. BPD: 6.9 cm corresponding to a 27 week 5 day gestation. HC: 25.1 cm corresponding to a 27 week 2 day gestation. AC: [20.8 cm corresponding to a 28 week 6 day gestation. FL: 4.9 cm corresponding to a 26 week 3 day gestation. The gestational age based on the initial ultrasound measurements on 09/26/2019 indicated the age at this time, based on the prior ultrasound should be 28 weeks 1 day with an estimated due date of 05/15/2020. FL/AC: 19.86 % (20-24 % is normal range.) HC/AC: 1.02 CI: 82.51 % (70-86 % is normal range.) Estimated weight: 1148 grams, +/- 170 grams. This weight places the gestation at approximately the 26th percentile when compared to the last menstrual period history. US/OB Limited With Biometrics IMPRESSION: Single, viable intrauterine gestation in transverse presentation at approximately 27 weeks 1 day based upon today''s ultrasound measurements Electronically Signed: Kedar Beaver, at 12:18 EST Tel , Service support ,
== END ==
PROVIDERS: PCP Family Medicine; Referring Provider Nurse Practitioner Women's Health; Visit Provider Nurse Practitioner Women's Health
DX: O09.93 Supervision of high risk pregnancy, unspecified, third trimester (principal); O09.813 Supervision of pregnancy resulting from assisted reproductive technology, third trimester; Z3A.28 28 weeks gestation of pregnancy
CPT/HCPCS: 76816

== ENCOUNTER → 2020-03-27 11:30 | Outpatient (CLI) | payer BC, SELFPAY ==
[2020-02-14 09:08] VITALS: BMI 32.2
[2020-03-21 14:37] VITALS: BMI 33.7
--- NOTE | 2020-03-27 11:32 | US_ITS ---
STUDY: SECOND AND THIRD TRIMESTER OBSTETRICAL ULTRASOUND - LIMITED REASON FOR EXAM: Female, 29 years old. Growth. LMP: 08/17/2019 PRIOR ULTRASOUND: 09/19/2019, 09/26/2019, 10/18/2019 and 02/22/2020 TECHNIQUE: Transabdominal TECHNICAL QUALITY: Adequate. FINDINGS: There is a single intrauterine fetus. The fetus is in a cephalic presentation. There is demonstrated cardiac activity with a heart rate of 137 bpm. There is a normal amniotic fluid volume. The largest amniotic fluid pocket measures 6.8 cm. The amniotic fluid index (JODY) is 8.97 cm. The placenta is anterior in location and is not low lying. There are Grade 3 placental changes. The cervix measures 3.38 cm cm in length. BIOMETRY: BPD: 7.96 cm: 31 weeks, 6 days HC: 29.16 cm: 32 weeks, 0 days AC: 30.4 cm: 34 weeks, 2 days FL: 6.09 cm: 31 weeks, 4 days Age by LMP: 31 weeks, 6 days. OMARI by LMP: 05/23/2020. age by prior US: 32 weeks, 4 days. OMARI by prior US: 05/18/2020. age by current US: 32 weeks, 1 days. OMARI by current US: 05/21/2020. Estimated weight: 2162 grams, +/- 324 grams, 50 percentile. Gender: Indeterminant US/OB Limited With Biometrics IMPRESSION: 1. Live single intrauterine at 32 weeks, 1 day. OMARI is 05/21/2020. There is adequate interval growth since the prior ultrasound. 2. EFW of 2162 g. 3. Low normal amniotic fluid. The JODY is 8.97 cm 4. Anterior grade 3 placenta. 5. VERTEX presentation. Electronically Signed: Lazaro Herring DO at 22:41 EST Tel [phone], Service support ,
== END ==
PROVIDERS: PCP Family Medicine; Referring Provider Obstetrics & Gynecology; Visit Provider Obstetrics & Gynecology
DX: O09.93 Supervision of high risk pregnancy, unspecified, third trimester (principal); O09.813 Supervision of pregnancy resulting from assisted reproductive technology, third trimester; Z3A.32 32 weeks gestation of pregnancy
CPT/HCPCS: 76816

== ENCOUNTER → 2020-04-03 14:32 | Outpatient (CLI) | payer OTHER, SELFPAY ==
[2020-03-21 14:37] VITALS: BMI 33.7
--- NOTE | 2020-04-03 14:37 | US_ITS ---
STUDY: SECOND AND THIRD TRIMESTER OBSTETRICAL ULTRASOUND - LIMITED REASON FOR EXAM: Female, 29 years old BORDERLINE LOW JODY LMP: 08/17/2019 PRIOR ULTRASOUND: Comparison is made with prior examination dated 03/27/2020. TECHNIQUE: Transabdominal TECHNICAL QUALITY: Adequate. FINDINGS: There is a single intrauterine fetus. The fetus is in a cephalic presentation. There is demonstrated cardiac activity with a heart rate of 146 bpm. There is a normal amniotic fluid volume. The largest amniotic fluid pocket measures 3.2 cm x 1.8 cm. The amniotic fluid index (JODY) is 11.5 cm. The placenta is anterior in location and is not low lying. There are Grade 3 placental changes. BIOMETRY: Age by LMP: 32 weeks, 6 days. OMARI by LMP: 05/23/2020. age by prior US: 33 weeks, 1 days. OMARI by prior US: 05/21/2020. US/OB Limited (No Biometrics) IMPRESSION: Normal amniotic fluid index Electronically Signed: James Gonzalez, at 15:42 EST , Service support ,
== END ==
PROVIDERS: PCP Family Medicine; Referring Provider Obstetrics & Gynecology; Visit Provider Obstetrics & Gynecology
DX: O28.8 Other abnormal findings on antenatal screening of mother (principal); Z3A.00 Weeks of gestation of pregnancy not specified
CPT/HCPCS: 76815

== ENCOUNTER → 2020-04-17 | Outpatient (CLI) | payer OTHER, SELFPAY ==
[2020-04-17 16:01] VITALS: BMI 35.0
== END | disposition home or self-care (01) ==
LOC: LABSPEC 16:47
PROVIDERS: PCP Family Medicine; Visit Provider Nurse Practitioner Women's Health
DX: R69 Illness, unspecified (principal)

== ENCOUNTER → 2020-04-24 11:31 | Outpatient (CLI) | payer OTHER, SELFPAY ==
[2020-04-17 16:01] VITALS: BMI 35.0
--- NOTE | 2020-04-24 11:32 | US_ITS ---
STUDY: SECOND AND THIRD TRIMESTER OBSTETRICAL ULTRASOUND - LIMITED REASON FOR EXAM: Female, 29 years old GROWTH LMP: 08/09/2019. PRIOR ULTRASOUND: Comparison is made with prior study dated 10/01/2020. TECHNIQUE: Transabdominal TECHNICAL QUALITY: Adequate. FINDINGS: There is a single intrauterine fetus. The fetus is in a cephalic presentation. There is demonstrated cardiac activity with a heart rate of 139 bpm. There is a normal amniotic fluid volume. The largest amniotic fluid pocket measures 7.5 cm. The amniotic fluid index (JODY) is 13.4 cm. The placenta is anterior in location and is not low lying. There are Grade 3 placental changes. BIOMETRY: BPD: 8.8 cm: 35 weeks, 3 days HC: 31.49 cm: 35 weeks, 2 days AC: 33.79 cm: 37 weeks, 4 days FL: 6.55 cm: 33 weeks, 5 days Age by LMP: 37 weeks, 0 days. OMARI by LMP: 05/15/2020. age by prior US: 36 weeks, 1 days. OMARI by prior US: 05/21/2020. age by current US: 35 weeks, 3 days. OMARI by current US: 05/26/2020. Estimated weight: 2936 grams, +/- 440 grams, 41 percentile. US/OB Limited With Biometrics IMPRESSION: Single live intrauterine gestation with a mean gestational age of 36 weeks and 1 day. The measurements obtained today fall within the normal expected range. Electronically Signed: James Gonzalez MD at 13:54 EST , Service support ,
== END ==
LOC: OPUS 11:31 → US 11:32
PROVIDERS: PCP Family Medicine; Referring Provider Nurse Practitioner Women's Health; Visit Provider Nurse Practitioner Women's Health
DX: O09.00 Supervision of pregnancy with history of infertility, unspecified trimester (principal); O09.819 Supervision of pregnancy resulting from assisted reproductive technology, unspecified trimester
CPT/HCPCS: 76816; 87077; 87081; 87186

== ENCOUNTER → 2020-05-14 15:34 | Outpatient (CLI) | payer OTHER, SELFPAY ==
[2020-04-03 16:06] VITALS: BMI 34.3
[2020-05-14 14:14] VITALS: BMI 36.5
== END ==
PROVIDERS: PCP Family Medicine; Visit Provider Nurse Practitioner Women's Health
DX: Z34.90 Encounter for supervision of normal pregnancy, unspecified, unspecified trimester (principal)
CPT/HCPCS: 87635; C9803; U0005; U0003

== ENCOUNTER → 2020-05-22 14:23 | Outpatient (CLI) | payer OTHER, SELFPAY ==
[2020-05-18 11:21] VITALS: BMI 35.9
--- NOTE | 2020-05-22 14:29 | US_ITS ---
STUDY: SECOND AND THIRD TRIMESTER OBSTETRICAL ULTRASOUND - LIMITED REASON FOR EXAM: Female, 29 years old post dates -- GROWTH LMP: 08/09/2019. PRIOR ULTRASOUND: Comparison is made with prior study dated 10/22/2020. TECHNIQUE: Transabdominal TECHNICAL QUALITY: Adequate. FINDINGS: There is a single intrauterine fetus. The fetus is in a cephalic presentation. There is demonstrated cardiac activity with a heart rate of 135 bpm. There is a normal amniotic fluid volume. The largest amniotic fluid pocket measures 6.1 cm x 5.1 cm. The amniotic fluid index (JODY) is 13.3 cm. The placenta is anterior in location and is not low lying. There are Grade 3 placental changes. The cervix was not measured due to lack of bladder filling. BIOMETRY: BPD: 9.47 cm: 38 weeks, 4 days HC: 34.04 cm: 39 weeks, 1 days AC: 37.42 cm: 41 weeks, 1 days FL: 7.56 cm: 38 weeks, 4 days Age by LMP: 41 weeks, 0 days. OMARI by LMP: 05/15/2020. age by prior US: 39 weeks, 3 days. OMARI by prior US: 05/26/2020. age by current US: 39 weeks, 2 days. OMARI by current US: 05/27/2020. Estimated weight: 4032 grams, +/- 605 grams, US/OB Limited With Biometrics IMPRESSION: Single live intrauterine gestation with a mean gestational age of 39 weeks and 3 days. The measurements obtained today fall within the normal expected range. Electronically Signed: James Gonzalez MD at 15:44 EST , Service support ,
== END ==
PROVIDERS: PCP Family Medicine; Referring Provider Obstetrics & Gynecology; Visit Provider Obstetrics & Gynecology
DX: O48.0 Post-term pregnancy (principal); Z3A.00 Weeks of gestation of pregnancy not specified
CPT/HCPCS: 76816

== ENCOUNTER 2020-05-23 07:14 | Inpatient (IN) | payer OTHER, SELFPAY ==
[2020-05-18 11:21] VITALS: BMI 35.9
[2020-05-22 15:22] VITALS: BMI 36.0
[2020-05-23] VITALS (49 sets, daily range): BP systolic 93–154; BP diastolic 50–96; PULSE 30–114; RESP 16–18; TEMP 36.2–37.7; O2SAT 86–100; BMI 36.3
[2020-05-23] MEDS: Lactated Ringers 1,000 ML 50 ML IV (07:45)
--- NOTE | 2020-05-23 07:49 | HP.PCM_ITS ---
- Problem List (1) 35 weeks gestation of Status: Acute Comment: electornic covid test ordered 04/13/20 (scheduled for 05/15/20 at 1655) (2) GBS (group B Streptococcus carrier), +RV culture, currently Status: Acute Comment: ancef if nonanaphylactic allergy, clinda resistant plan vancomycin if needed (3) Lab test negative for COVID-19 virus Status: Acute (4) Status: Acute Qualifiers: Comment: genetic, carrier, and ntd screening declined. nl anatomy (5) conceived through in vitro fertilization Status: Acute Qualifiers: Comment: echo normal; growth scan at 28 weeks, limited views @ 28 wks repeat @ 30 wks Growth US Q4w (6) Supervision of with history of infertility Status: Acute Comment: PRR OMARI 05/15/20 girl halo Vahid (7) Thyroid disease during Status: Acute Qualifiers: Comment: normal TSH check qtrimester(nl 02/14/20) on synthroid per RGI History and Physical Date of Admission: 05/23/20 Intake Vital Signs 05/14/20 Height 5 ft 3 in 05/14/20 Weight: 206 lb 05/14/20 BP 120/80 Intake Visit Reasons: 40wk ob r.s from [facility] Smoke Eater Required: No Is patient in pain?: No Allergies amoxicillin Adverse Reaction (Intermediate, Verified 05/14/20 14:14) rash sulfamethoxazole [From ] Adverse Reaction (Intermediate, Verified 05/14/20 14:14) rash trimethoprim [From ] Adverse Reaction (Intermediate, Verified 05/14/20 14:14) rash Medications vitamin#30 30 mg iron-10 mg iron-folic acid 1 mg-omg3 capsule cap PO 10/27/19 [History Confirmed 05/14/20] levothyroxine 25 mcg tablet 25 mcg PO DAILY #30 tab 03/09/20 [Rx Confirmed 05/14/20] Last Menstral Period: 08/17/19 Zika: Zika virus screening: Negative : No PFSH PFSH Medical History Thyroid disorder (Acute) Surgical History H/O knee surgery (Acute) Family History Grandfather Myocardial infarction Aunt Breast cancer great aunt Social History (Updated 05/14/20 @ 15:[address] Filomena Dalton MD) current occupational status: employed current occupation: [employer] Smoking Status: Never smoker alcohol intake: current details: social- pre substance use type: does not use caffeine: Yes what type of physical activity do you participate in: walking seatbelt use: always do you feel safe at home: Yes additional social history: [employer] Pregancy History 1 Elective abortions Hx Para Spontaneous abortions Hx # Term Pregnancies Ectopic pregnancies Hx # Pregnancies Multiple births # of living children HPI 40wk ob r.s from [facility]: Details: LUZ TEAGUE is a 29 year old who presents for routine OB visit. OB Visit OMARI Calculator Estimated Delivery Date Method Current WG Current Estimate 05/15/20 Ultrasound #1 39w 6d Other Estimates 05/18/20 Conception 39w 3d Expected Delivery Route/Plan IOL by 41 Labor Preferences- CB/BF classes: scheduled in March labor support person: Vahid labor intervention preferences: no specific pain management options preferred: epidural cut cord/dad catch: yes : yes PP control planned: undecided discussed possible routes of delivery and associated risks: discussed possible delivery modalities and possible indications for each including R/B/A of , VAVD, and CS. questions answered. special requests: [] Specific Issue/Plans flu vaccine: yes tdap vaccine: yes rhogam: na LARC form signed: yes movement and labor precautions reviewed. Problem list reviewed and updated with the most current plan of care details and appropriate orders placed. Relevant counseling for the gestational age provided. Continue routine care and follow up unless otherwise noted in visit notes/problem list details Initial Weight: 163 lb Date EGA Weight BP Urine Prot Glucose FHR FuHt Pres Dilation Effaced St Visit Note 10/27/19 11w 2d 163 lb (+0 oz) 120/82 165 SM- CRL 4.7cm cons with OMARI 11/22/19 15w 0d 167 lb (+4 lb) 108/70 Negative Negative 150 145 Sm- no vb cramping 12/21/19 19w 1d 171 lb 8 oz (+8 lb 8 oz) 126/82 Negative Negative 142 MH-No VB, LOF. Doing well 02/01/20 25w 1d 180 lb (+17 lb) 110/80 Negative Negative 140 25 GP - no LOF, VB, DFM, ctx. Reviewed echo and anatomy scan - needs repeat US for 3VTV. 02/14/20 27w 0d 182 lb (+19 lb) 120/70 Negative Negative 163 27 MH-No VB, LOF. Good FM. 28 wk labs, tdap and LARC. MH-No VB, LOF. Good FM. 28 wk labs, tdap, growth US and LARC. MH-No VB, LOF. Good FM. 28 wk labs, tdap, thyroid labs, growth US and LARC. 03/09/20 30w 3d 190 lb (+27 lb) 115/68 Negative Negative 150 30 SM- no vb lof good fm no regular ctx 03/21/20 32w 1d 190 lb 8 oz (+27 lb 8 oz) 122/78 Negative Negative 140 32 GP - no LOF, VB, DFM, ctx. Denies complaints. Growth scan next week per MFM. GP - no LOF, VB, DFM, ctx. Denies complaints. Growth scan next week. 04/03/20 34w 0d 194 lb (+31 lb) 124/84 Negative Negative 142 34 MH-NO VB, LOF. Reg CTX. Good FM. Reviewed US today:normal JODY 04/17/20 36w 0d 198 lb (+35 lb) 136/78 Negative Negative 161 36 0.5 30 -3 MH-No Vb, LOF. Good FM. G BS. Growth and JODY US 2 weeks. Covid scheduled. 04/24/20 37w 0d 199 lb (+36 lb) 100/72 Negative Negative 135 37 SM- no vb lof good fm n oregular ctx 05/01/20 38w 0d 201 lb (+38 lb) 116/73 Negative Negative 135 38 SM- no vblof good fm no regular ctx 05/08/20 39w 0d 112/82 Negative Negative 135 38 SM- no vb lof good fm no regular ctx 05/14/20 39w 6d 206 lb (+43 lb) 120/80 Negative Negative 155 39 Cephalic 3 70 -1 GP - no LOF, VB, DFM, ctx . Membranes swept today. Scheduled for IOL on 05/22 ACOG First Trimester First Trimester: Desire for , Alcohol, Tobacco Cessation, Illicit/Recreational Drug/Substance Use, Intimate Partner Violence, Barriers to care, Unstable Housing, Communication Barriers, Environmental/Work Hazards, Anticipated Course of Care, Toxoplasmosis Precations, Use of Any medications, Sexual activity, Exercise, Dental Care, Sauna/Hot tub use, Seat Belt use, Childbirth classes/Hospital facilities, , Travel, Indications for US and Screening for Aneuploidy Second Trimester Second Trimester: Signs and Symptoms of Labor, Selecting a care provider, Reproductive Life Planning, Care Planning, Depression/Anxiety and Intimate Partner Violence; discussed Tobacco Cessation Diagnostics Diagnostics Details: HIV: Urine Culture: Sequential Screen: NIPT Screen: ROS Const Reports system reviewed and no additional complaints, except as docu Eyes Reports system reviewed and no additional complaints, except as docu ENT Reports system reviewed and no additional complaints, except as docu Card Reports system reviewed and no additional complaints, except as docu Resp Reports system reviewed and no additional complaints, except as docu GI Reports system reviewed and no additional complaints, except as docu Reports system reviewed and no additional complaints, except as docu, Denies abnormal vaginal bleeding, Denies painful urination, Denies pelvic pain, Denies vaginal discharge, Denies vaginal odor, Denies vaginal itching Musc Reports system reviewed and no additional complaints, except as docu Skin/Breast Reports system reviewed and no additional complaints, except as docu Neuro Yes system reviewed and no additional complaints, except as docu Psych Reports system reviewed and no additional complaints, except as docu Endo Reports system reviewed and no additional complaints, except as docu Exam Const General: cooperative, healthy appearing, comfortable, no acute distress, well developed, well groomed Nutritional Appearance: average body habitus, well nourished Orientation: alert, awake, oriented x3 HENMT Head: normal to inspection, normocephalic, atraumatic Eyes Pupils: PERRL, accommodation normal Resp Effort & Inspection: normal respiratory effort, able to speak in complete sentences, symmetric chest movement Cardio Rate: regular rate GI Palpation: soft, no guarding, no masses, nontender Skin General: no rashes or lesions noted, elasticity normal, turgor normal Neuro General: alert, awake, oriented x3 Cranial Nerves: CN's II-XI intact bilaterally, sense of smell intact, PERRL, accommodation normal, EOM intact bilaterally Speech: speech normal Gait: normal gait Psych Appearance: grossly normal, well kempt Mental Status: mental status grossly normal Mood: congruent mood Affect: normal affect Speech and Movement: speech and movement normal Attitude: cooperative Thought Process: normal Thought Content: normal Judgment: judgment good Results POC Urinalysis 2 Dip (Clinic) Office Urine Glucose Negative Last Edit by Nadiya Chavez on 05/14/20 14:30 Office Urine Protein Negative Last Edit by Nadiya Chavez on 05/14/20 14:30 Assessment & Plan Problems 1. GBS (group B Streptococcus carrier), +RV culture, currently O99.820 ancef if nonanaphylactic allergy, clinda resistant plan vancomycin if needed 2. 35 weeks gestation of Z3A.35 electornic covid test ordered 04/13/20 (scheduled for 05/15/20 at 1655) 3. Thyroid disease during in third trimester O99.283; E07.9 normal TSH check qtrimester(nl 02/14/20) on synthroid per RGI 4. resulting from in vitro fertilization in third trimester O09.813 echo normal; growth scan at 28 weeks, limited views @ 28 wks repeat @ 30 wks Growth US Q4w 5. Supervision of with history of infertility O09.00 PRR OMARI 05/15/20 girl halo Vahid 6. 39 weeks gestation of Z3A.39 genetic, carrier, and ntd screening declined. nl anatomy Plan IOL for late term, plan management for with pitocin/AROM. Pain management: plans epidural. GBS positive. Management of any complications: none I have reviewed the [facility] and made any clinically relevant updates. UPDATE- I have seen the patient and performed any clinically relevant updates t o the history and physical exam. Filomena Dalton MD
[2020-05-23] MEDS: Cefazolin 2 GM in 0.9% Normal Saline 100 ML IV ×2 (08:00→21:07)
[2020-05-23] MEDS: Oxytocin 30 units/NS 500 ml 30 UNITS/500 ML IV.SOLN IV (08:05)
[2020-05-23 08:25] LABS: Absolute Lymphocyte Count 1.66 X10^3/uL (0.83-4.51); Absolute Neutrophil Count 7.4 X10^3/uL (2.0-7.7); Basophil# 0.05 X10^3/uL; Basophil% 0.5 % (0-1); Eosinophil# 0.14 X10^3/uL; Eosinophils% 1.4 % (0-5); Hematocrit 41.2 % (37-47); Hemoglobin 13.8 g/dL (12.0-15.0); Lymphocyte # 1.66 X10^3/ul (4.0); Lymphocyte % 16.8 % (19-41); Mean Corp Hgb Conc 33.5 g/dL (32-36); Mean Corpuscular Hgb 31.1 pg (27.0-32.0); Mean Corpuscular Volume 92.8 fL (81-99); Mean Platelet Vol. 11.2 fl (6.2-12.0); Monocyte# 0.58 X10^3/uL; Monocyte% 5.9 % (0-10); NRBC Flagged by Analyzer 0 % (0-5); Neutrophil # 7.36 X10^3/uL (2.7-7.7); Neutrophil % 74.4 % (47-70); POSITIVE COUNT YES; Platelet Count 245 K/mm3 (150-450); RBC Distribution Width CV 12.8 % (11.6-14.6); RBC Distribution Width SD 43.7 fl (35.1-43.9); Red Blood Count 4.44 M/mm3 (4.2-5.4); White Blood Count 9.9 K/mm3 (4.4-11.0)
[2020-05-23 08:29] LABS: Differential Indicated SCAN CRITERIA MET
[2020-05-23 09:01] LABS: Platelet Morphology CLUMPED
[2020-05-23] MEDS: Lactated Ringers 500 ML 999 ML IV ×2 (11:27→18:43)
[2020-05-23] MEDS: fentaNYL-bupivacaine (epidural) 100 ML BAG EPIDURAL ×2 (12:30→16:44)
[2020-05-23] MEDS: Lactated Ringers 1,000 ML 200 ML IV ×2 (15:39→19:31)
[2020-05-23] MEDS: Cefazolin 1 GM/50 ML BAG IV (15:57)
[2020-05-23] MEDS: Ondansetron 4 MG/2 ML Vial IV (17:52)
--- NOTE | 2020-05-23 20:38 | PCM.PN.BLA ---
Progress Note Patient became complete at 5:30 PM and began pushing at 6:00 PM patient has been pushing with excellent maternal effort. Contractions are somewhat infrequent as patient has had multiple prolonged decelerations after attempts to start Pitocin. In spite of excellent maternal effort, no descent has been noted since patient was called complete dilation at 5:30 PM. Discussed with patient that we typically allow her to push for up to 4 hours. Patient reports that she is feeling exhausted and if she has not made progress, she is requesting that we proceed with a at this time. The risk, benefits, indications, and alternatives to the procedure were discussed with the patient including bleeding, infection, and visceral or vascular injury. Patient was understanding and agrees to proceed. STROKE Vital Signs/Narrative: Vital Signs Temp Pulse Resp BP Pulse Ox 05/23/20 20:35 95 131/73 H 05/23/20 20:32 99.5 F H 98 16 131/73 H 99 05/23/20 19:20 84 106/53 L 05/23/20 19:19 98.9 F 97 05/23/20 18:48 94 97 05/23/20 18:10 80 107/59 L 05/23/20 17:35 95 90 05/23/20 17:34 93 97 05/23/20 16:51 80 120/56 L 98 05/23/20 16:50 83 97
[2020-05-23] MEDS: Sodium Citrate/Citric Acid 30 ML UDC PO (20:44)
--- NOTE | 2020-05-23 21:58 | OP.PCM_ITS ---
Problem List (1) 35 weeks gestation of Status: Acute Comment: electornic covid test ordered 04/13/20 (scheduled for 05/15/20 at 1655) (2) GBS (group B Streptococcus carrier), +RV culture, currently Status: Acute Comment: ancef if nonanaphylactic allergy, clinda resistant plan vancomycin if needed (3) Lab test negative for COVID-19 virus Status: Acute (4) Status: Acute Qualifiers: Comment: genetic, carrier, and ntd screening declined. nl anatomy (5) conceived through in vitro fertilization Status: Acute Qualifiers: Comment: echo normal; growth scan at 28 weeks, limited views @ 28 wks repeat @ 30 wks Growth US Q4w (6) Supervision of with history of infertility Status: Acute Comment: PRR OMARI 05/15/20 girl halo Vahid (7) Thyroid disease during Status: Acute Qualifiers: Comment: normal TSH check qtrimester(nl 02/14/20) on synthroid per RGI Delivery Classification: GERARDO Final OMARI: 05/15/20 Gestational age: 41 Weeks and 1 Days motel clerk: Lamin Ramachandran Type of Anesthesia:: Epidural Date of Procedure: 05/23/20 Pre-Operative Diagnosis: Induction of labor for late term, arrest of descent, maternal exhaustion, suspected cephalopelvic disproportion Post-Operative Diagnosis: Same, CPD Indications: Patient is a 29-year-old G1, P0 at 41 weeks gestation who was admitted for induction of labor for late term. She was induced with Pitocin. She made cervical change to complete dilation at 1730 and began pushing at 1800. She pushed with excellent maternal effort from [id number] with no descent. Patient reported exhaustion and felt that she was unable to continue pushing. Decision was made to proceed with a primary . Indications for : Arrrest of Descent, Suspected cephalopelvic disproportion Description of Procedure: The patient was taken to the operating room where epidural was dosed for spinal anesthesia without difficulty. The patient was placed in the dorsal supine position with leftward tilt. Patient was prepped and draped in the normal sterile fashion. Pfannenstiel skin incision was made with the scalpel and carried through to the underlying layer of fascia with the scalpel. Fascia was nicked in the midline and the incision extended laterally. The rectus bellies were dissected off superiorly and inferiorly with out complication both sharply and bluntly. The peritoneum was entered digitally. The incision was stretched and a low transverse uterine incision was made with the scalpel. The infant's head was delivered atraumatically followed by the anterior and posterior shoulders without complication the rest of the infant delivered. The cord was clamped and cut and the was handed off to awaiting nurse. The placenta was delivered spontaneously immediately following and was noted to be intact and have a three-vessel cord. The uterus was exteriorized cleared of all clots and debris, and the incision was closed in a double layer closure using #1 Monocryl. The ovaries and fallopian tubes were noted to be within normal limits. The uterus was returned to the maternal abdomen and gutters were cleared of all clots and debris. The peritoneum was closed with 3-0 Monocryl in a running fashion. Gloves were changed prior to fascial closure. Fascia was closed with 0 PDS in a running fashion. Subcutaneous tissue was copiously irrigated and the skin was closed with 3-0 Monocryl in a subcuticular fashion. Mepilex dressing was applied without complication. Patient was taken to recovery in stable condition. It was discussed with the patient that based on the clinical information obtained during this encounter, combined with her history, at this time I would recommend repeat C-sections for future deliveries if further pregnancies are desired. Amniotic Membrane Rupture Type: Artificial Amniotic Fluid Description: Lightly stained meconium Placenta Disposition: [facility] Drain: [place] to straight drain Fluids Replaced: 1100 Cord Entanglement: None Cord Vessel Description: 3 Vessels Esitmated Blood Loss (ml): 600 Infant Gender: Female Delayed cord clamping: No Antibiotic Given: Ancef 2 grams IV x1, Zithromax 500 mg/5 mL X1 Pt instructed on risks of surgery: Bleeding, Anesthesia Risks, Infection, Need for Future C-Sections, Failure Rate of 1 to 2% Complications: None - Admit VTE Documentation VTE Present on Admission: No VTE Mechan Device Prophylaxis: SCD's VTE Pharm Prophylaxis ordered?: Yes Multi Select Codes - Urinary/Genital Urinary/Genital CPT Codes: 57743 Delivery [facility]
--- NOTE | 2020-05-23 22:04 | DCINST_ITS ---
Discharge Diet: No Restrictions Discharge Activity: May Not Drive - for 2 weeks or while taking narcotic pain meds., May Shower, May Take a Tub Bath - in 7 days. May resume sexual activity in: 4-6 weeks Lifting Restrictions: 20 pounds Additional Activity Instructions:: Nothing in the vagina for 4-6 weeks. You may return to work/school in 6 weeks. Call your doctor if your incision/area has: Continuous Slow Oozing, Sudden Increased Bleeding, Increased Pain/ Swelling, Increased Redness, Foul Smelling Discharge Call your doctor if you observe: Fever of 101 or Higher Suture Line Care: Avoid Pulling/Pushing, Avoid Pinching/Bending Additional Instructions: If you experience any of the following, contact your healthcare provider. * Bleeding that soaks a pad every hour for 2 hours * Fever 100.4 or higher * Unrelieved incision or abdominal pain * Swelling, redness, discharge or bleeding from your incision or episiotomy site * Your incision begins to separate * Problems urinating (including inability to urinate or burning while urinating). * Visual changes * Severe headache * Flu-like symptoms * Pain or redness in one of both of your breasts * Pain, warmth, tenderness or swelling in your legs, especially the calf area * Frequent nausea and vomiting * Symptoms of depression or anxiety If you experience any of the following, call 911 or go to the nearest Emergency Room. * Chest pain * Problems breathing * Seizure activity * Partial or complete paralysis of a body part, slurred speech, weakness or drooping of the face, or a sudden inability to walk or hold your balance Allergies/Adverse Reactions: Allergies amoxicillin Adverse Reaction (Intermediate, Verified 05/23/20 07:39) rash sulfamethoxazole [From Septra] Adverse Reaction (Intermediate, Verified 05/23/20 07:39) rash trimethoprim [From Septra] Adverse Reaction (Intermediate, Verified 05/23/20 07:39) rash Medications to take at Discharge vitamin#30 30 mg iron-10 mg iron-folic acid 1 mg-omg3 capsule 1 cap PO DAILY 10/27/19 Levothyroxine Sodium [Synthroid] 25 mcg PO DAILY 05/23/20 Follow-Up: Call to make an appointment with your doctor for an incision check in 1-2 weeks. You will also need a 6 week post- follow up appointment. Test results from this visit will be discussed in further detail at your follow- up appointment, if applicable. Primary Care Physician: Tim Gonzalez MD [Primary Care Provider] -
[2020-05-23] MEDS: Oxytocin 30 units/NS 500 ml 30 UNITS/500 ML IV.SOLN 167 UNITS IV (22:20)
[2020-05-23] MEDS: Acetaminophen 500 MG Tablet 1000 MG PO (23:28)
[2020-05-24] VITALS (14 sets, daily range): BP systolic 106–137; BP diastolic 40–78; PULSE 71–99; RESP 16–18; TEMP 36.4–37.1; O2SAT 96–98
--- NOTE | 2020-05-24 00:28 | NURSING ---
Epidural catheter removed. Blue tip intact.
[2020-05-24] MEDS: Lactated Ringers 1,000 ML 100 ML IV (01:14)
[2020-05-24] MEDS: Ketorolac 30 MG/ML Syringe IV ×4 (02:48→20:37)
[2020-05-24 04:14] LABS: Hematocrit 35.7 % (37-47); Mean Corp Hgb Conc 33.6 g/dL (32-36); Mean Corpuscular Hgb 30.8 pg (27.0-32.0); Mean Corpuscular Volume 91.8 fL (81-99); Mean Platelet Vol. 9.8 fl (6.2-12.0); Platelet Count 211 K/mm3 (150-450); RBC Distribution Width CV 12.7 % (11.6-14.6); RBC Distribution Width SD 42.5 fl (35.1-43.9); Red Blood Count 3.89 M/mm3 (4.2-5.4); White Blood Count 18.4 K/mm3 (4.4-11.0)
[2020-05-24] MEDS: Acetaminophen 500 MG Tablet 1000 MG PO ×4 (06:17→23:29)
[2020-05-24] MEDS: 0.9% Saline Lock 10 ML Syringe IV ×2 (06:18→20:38)
[2020-05-24] MEDS: Senna/Docusate Sodium 1 Tablet PO (09:26)
[2020-05-24] MEDS: Enoxaparin 40 MG/0.4 ML Syringe SC (09:26)
--- NOTE | 2020-05-24 13:04 | PCM.PN.OB ---
Patient Problems: Active and Suspected Problems (Last Reviewed 05/22/20 @ 15:22 by Nadiya Chavez) Lab test negative for COVID-19 virus (Acute) GBS (group B Streptococcus carrier), +RV culture, currently (Acute) ancef if nonanaphylactic allergy, clinda resistant plan vancomycin if needed 35 weeks gestation of (Acute) electornic covid test ordered 04/13/20 (scheduled for 05/15/20 at 1655) Thyroid disease during (Acute) normal TSH check qtrimester(nl 02/14/20) on synthroid per RGI conceived through in vitro fertilization (Acute) echo normal; growth scan at 28 weeks, limited views @ 28 wks repeat @ 30 wks Growth US Q4w Supervision of with history of infertility (Acute) PRR OMARI 05/15/20 girl halo Vahid (Acute) genetic, carrier, and ntd screening declined. nl anatomy Subjective: Patient doing well without complaints. Tolerating PO. Ambulating and voiding without difficulty. Breast feeding well. Denies chest pain, shortness of breath, calf pain/swelling, fevers, chills, lightheadedness. Objective: Laboratory Tests 05/24/20 05/23/20 05/23/20 Range/Units 04:00 07:45 07:45 WBC 18.4 H 9.9 (4.4-11.0) K/mm3 RBC 3.89 L 4.44 (4.2-5.4) M/mm3 Hgb 12.0 13.8 (12.0-15.0) g/dL Hct 35.7 L 41.2 (37-47) % MCV 91.8 92.8 (81-99) fL MCH 30.8 31.1 (27.0-32.0) pg MCHC 33.6 33.5 (32-36) g/dL RDW Std Deviation 42.5 43.7 (35.1-43.9) fl RDW Coeff of Angelita 12.7 12.8 (11.6-14.6) % Plt Count 211 245 (150-450) K/mm3 MPV 9.8 11.2 (6.2-12.0) fl Immature Gran % (Auto) 1.000 H (0.0-0.9) % Neut % (Auto) 74.4 H (47-70) % Lymph % (Auto) 16.8 L (19-41) % [place] % (Auto) 5.9 (0-10) % Eos % (Auto) 1.4 (0-5) % Baso % (Auto) 0.5 (0-1) % Absolute Neuts (auto) 7.4 (2.0-7.7) X10^3/uL Absolute Lymphs (auto) 1.66 (0.83-4.51) X10^3/uL Nucleated RBC % 0 (0-5) % Plt Morphology Comment CLUMPED Blood Type Cancelled A1 Antigen Typing Cancelled Rho(D) Type Cancelled Antibody Screen NEGATIVE - Physical Exam Vitals/I&O's: Vital Signs Temp Pulse Resp BP Pulse Ox 97.8 F 81 16 137/59 H 96 05/24/20 07:57 05/24/20 12:47 05/24/20 12:47 05/24/20 12:47 05/24/20 12:47 Oxygen Delivery Method Room Air Weight: 204 lb 12.951 oz Body Mass Index (BMI) 36.3 Intake and Output for Last 24 Hours 05/22/20 05/23/20 05/24/20 23:59 23:59 23:59 Intake Total 3882.63 / 3882.63 1197.63 / 1197.63 Output Total 500 / 500 1500 / 1500 Balance 3382.63 / 3382.63 -302.37 / -302.37 General: Alert, Oriented x3, Cooperative, No apparent distress, Well developed, Well nourished HEENT: Atraumatic, PERRLA, EOMI, Normocephalic Neck: Supple, No JVD Lungs: Normal air movement Cardiovascular: Regular rate Abdomen: Soft, Non Tender, Non-Distended, - - fundus firm, incision c/d/i Extremities: No edema, No Calf Tenderness Neurological: Cranial nerves II-XII grossly intact, Neuro grossly intact Psych/Mental Status: Normal Affect, Appropriate Laboratory Results 05/24/20 04:00: WBC 18.4 H, RBC 3.89 L, Hgb 12.0, Hct 35.7 L, MCV 91.8, MCH 30.8, MCHC 33.6, RDW Std Deviation 42.5, RDW Coeff of Angelita 12.7, Plt Count 211, MPV 9.8 Current Medications Acetaminophen (Acetaminophen 500 Mg Tablet) 1,000 mg PO Q6H [facility] Last Admin: 05/24/20 12:40 Dose: 1,000 mg Documented by: Bisacodyl (Bisacodyl 10 Mg Suppository) 10 mg RC UD PRN PRN Reason: If no BM Diphenhydramine HCl (Diphenhydramine 25 Mg Capsule) 25 mg PO Q6H PRN PRN PRN Reason: ITCHING Stop: 05/24/20 22:24 Enoxaparin Sodium (Enoxaparin 40 Mg/0.4 Ml Syringe) 40 mg SC DAILY [facility] Last Admin: 05/24/20 09:26 Dose: 40 mg Documented by: Hydrocortisone (Hydrocortisone 2.5% Crm) 1 applic TOPICAL TID PRN PRN; Protocol PRN Reason: Discomfort Ketorolac Tromethamine (Ketorolac 30 Mg/Ml Syringe) 30 mg IV Q6H [facility]; Protocol Stop: 05/24/20 21:01 Last Admin: 05/24/20 09:27 Dose: 30 mg Documented by: Levothyroxine Sodium (Levothyroxine 25 Mcg Tablet) 25 mcg PO DAILY@0600 [facility] Last Admin: 05/24/20 06:18 Dose: Not Given Documented by: Methylergonovine Maleate (Methylergonovine 0.2 Mg/Ml Ampul) 0.2 mg IM X1 PRN PRN Reason: Uterine Atony Nalbuphine HCl (Nalbuphine 10 Mg/Ml Ampul) 5 mg IV Q3H PRN PRN PRN Reason: ITCHING Stop: 05/24/20 22:24 Naloxone HCl (Naloxone 0.4 Mg/Ml Syringe) 0.02 mg IV Q1M PRN PRN Reason: RR <10 and pt unresponsive Naproxen (Naproxen 250 Mg Tablet) 500 mg PO Q8H [facility] Ondansetron HCl (Ondansetron 4 Mg/2 Ml Vial) 4 mg IV Q4H PRN PRN PRN Reason: Nausea Oxycodone HCl (Oxycodone 5 Mg Tablet) 5 - 10 mg PO Q4H PRN PRN PRN Reason: Pain Score 4-10 Prochlorperazine Edisylate (Prochlorperazine 10 Mg/2 Ml Vial) 10 mg IV Q6H PRN PRN PRN Reason: NAUSEA Senna/Docusate Sodium (Senna/Docusate Sodium 1 Tablet) 0 tablet PO DAILY [facility] Last Admin: 05/24/20 09:26 Dose: 1 tablet Documented by: Simethicone (Simethicone 80 Mg Tablet) 80 mg PO PCHS PRN PRN Reason: Indigestion/stomach pain Sodium Chloride (0.9% Saline Lock 10 Ml Syringe) 5 - 15 ml IV UD PRN PRN Reason: SALINE FLUSH Last Admin: 05/24/20 06:18 Dose: 10 ml Documented by: Medical Necessity - Tobacco Use Smoking Status: Never smoker Assessment/Plan All Active Problems (Last Reviewed 05/22/20 @ 15:22 by Nadiya Chavez) Lab test negative for COVID-19 virus (Acute) GBS (group B Streptococcus carrier), +RV culture, currently (Acute) 35 weeks gestation of (Acute) Thyroid disease during (Acute) conceived through in vitro fertilization (Acute) Supervision of with history of infertility (Acute) (Acute) Secondary amenorrhea (Resolved) Subchorionic hematoma (Resolved) s/p LTCS PPD # 1 1. routine post care 2. breast feeding- support given 3. rh positive 4. rubella immune
[2020-05-24] MEDS: Levothyroxine 25 MCG TABLET PO (23:24)
[2020-05-25 01:31] VITALS: BP 114/57; PULSE 71; RESP 18; TEMP 37.2; O2SAT 96
[2020-05-25] MEDS: Naproxen 250 MG Tablet 500 MG PO ×2 (03:18→10:02)
[2020-05-25] MEDS: Acetaminophen 500 MG Tablet 1000 MG PO (06:22)
--- NOTE | 2020-05-25 08:24 | PN.OBGYN_ITS ---
Patient Problems: Active and Suspected Problems (Last Reviewed 05/22/20 @ 15:22 by Nadiya Chavez) Lab test negative for COVID-19 virus (Acute) GBS (group B Streptococcus carrier), +RV culture, currently (Acute) ancef if nonanaphylactic allergy, clinda resistant plan vancomycin if needed 35 weeks gestation of (Acute) electornic covid test ordered 04/13/20 (scheduled for 05/15/20 at 1655) Thyroid disease during (Acute) normal TSH check qtrimester(nl 02/14/20) on synthroid per RGI conceived through in vitro fertilization (Acute) echo normal; growth scan at 28 weeks, limited views @ 28 wks repeat @ 30 wks Growth US Q4w Supervision of with history of infertility (Acute) PRR OMARI 05/15/20 girl halo Vahid (Acute) genetic, carrier, and ntd screening declined. nl anatomy Subjective: Patient doing well without complaints. Tolerating PO. Ambulating and voiding without difficulty. Breast feeding well. Denies chest pain, shortness of breath, calf pain/swelling, fevers, chills, lightheadedness. Objective: Laboratory Tests 05/24/20 05/23/20 05/23/20 Range/Units 04:00 07:45 07:45 WBC 18.4 H 9.9 (4.4-11.0) K/mm3 RBC 3.89 L 4.44 (4.2-5.4) M/mm3 Hgb 12.0 13.8 (12.0-15.0) g/dL Hct 35.7 L 41.2 (37-47) % MCV 91.8 92.8 (81-99) fL MCH 30.8 31.1 (27.0-32.0) pg MCHC 33.6 33.5 (32-36) g/dL RDW Std Deviation 42.5 43.7 (35.1-43.9) fl RDW Coeff of Angelita 12.7 12.8 (11.6-14.6) % Plt Count 211 245 (150-450) K/mm3 MPV 9.8 11.2 (6.2-12.0) fl Immature Gran % (Auto) 1.000 H (0.0-0.9) % Neut % (Auto) 74.4 H (47-70) % Lymph % (Auto) 16.8 L (19-41) % [place] % (Auto) 5.9 (0-10) % Eos % (Auto) 1.4 (0-5) % Baso % (Auto) 0.5 (0-1) % Absolute Neuts (auto) 7.4 (2.0-7.7) X10^3/uL Absolute Lymphs (auto) 1.66 (0.83-4.51) X10^3/uL Nucleated RBC % 0 (0-5) % Plt Morphology Comment CLUMPED Blood Type Cancelled A1 Antigen Typing Cancelled Rho(D) Type Cancelled Antibody Screen NEGATIVE - Physical Exam Vitals/I&O's: Vital Signs Temp Pulse Resp BP Pulse Ox 99 F 71 18 114/57 L 96 05/25/20 01:31 05/25/20 01:31 05/25/20 01:31 05/25/20 01:31 05/25/20 01:31 Oxygen Delivery Method Room Air Weight: 204 lb 12.951 oz Body Mass Index (BMI) 36.3 Intake and Output for Last 24 Hours 05/23/20 05/24/20 05/25/20 23:59 23:59 23:59 Intake Total 3882.63 / 3882.63 1197.63 / 1197.63 Output Total 500 / 500 2600 / 2600 Balance 3382.63 / 3382.63 -1402.37 / -1402.37 General: Alert, Oriented x3, Cooperative, No apparent distress, Well developed, Well nourished HEENT: Atraumatic, PERRLA, EOMI, Normocephalic Neck: Supple, No JVD Lungs: Normal air movement Cardiovascular: Regular rate Abdomen: Soft, Non Tender, Non-Distended, - - incision c/d/i, fundus firm Extremities: No edema, No Calf Tenderness Neurological: Cranial nerves II-XII grossly intact, Neuro grossly intact Psych/Mental Status: Normal Affect, Appropriate Current Medications Acetaminophen (Acetaminophen 500 Mg Tablet) 1,000 mg PO Q6H [facility] Last Admin: 05/25/20 06:22 Dose: 1,000 mg Documented by: Bisacodyl (Bisacodyl 10 Mg Suppository) 10 mg RC UD PRN PRN Reason: If no BM Enoxaparin Sodium (Enoxaparin 40 Mg/0.4 Ml Syringe) 40 mg SC DAILY [facility] Last Admin: 05/24/20 09:26 Dose: 40 mg Documented by: Hydrocortisone (Hydrocortisone 2.5% Crm) 1 applic TOPICAL TID PRN PRN; Protocol PRN Reason: Discomfort Levothyroxine Sodium (Levothyroxine 25 Mcg Tablet) 25 mcg PO DAILY@0600 [facility] Last Admin: 05/24/20 23:24 Dose: 25 mcg Documented by: Methylergonovine Maleate (Methylergonovine 0.2 Mg/Ml Ampul) 0.2 mg IM X1 PRN PRN Reason: Uterine Atony Naloxone HCl (Naloxone 0.4 Mg/Ml Syringe) 0.02 mg IV Q1M PRN PRN Reason: RR <10 and pt unresponsive Naproxen (Naproxen 250 Mg Tablet) 500 mg PO Q8H [facility] Last Admin: 05/25/20 03:18 Dose: 500 mg Documented by: Ondansetron HCl (Ondansetron 4 Mg/2 Ml Vial) 4 mg IV Q4H PRN PRN PRN Reason: Nausea Oxycodone HCl (Oxycodone 5 Mg Tablet) 5 - 10 mg PO Q4H PRN PRN PRN Reason: Pain Score 4-10 Prochlorperazine Edisylate (Prochlorperazine 10 Mg/2 Ml Vial) 10 mg IV Q6H PRN PRN PRN Reason: NAUSEA Senna/Docusate Sodium (Senna/Docusate Sodium 1 Tablet) 0 tablet PO DAILY [facility] Last Admin: 05/24/20 09:26 Dose: 1 tablet Documented by: Simethicone (Simethicone 80 Mg Tablet) 80 mg PO PCHS PRN PRN Reason: Indigestion/stomach pain Sodium Chloride (0.9% Saline Lock 10 Ml Syringe) 5 - 15 ml IV UD PRN PRN Reason: SALINE FLUSH Last Admin: 05/24/20 20:38 Dose: 10 ml Documented by: Medical Necessity - Tobacco Use Smoking Status: Never smoker Assessment/Plan All Active Problems (Last Reviewed 05/22/20 @ 15:22 by Nadiya Chavez) Lab test negative for COVID-19 virus (Acute) GBS (group B Streptococcus carrier), +RV culture, currently (Acute) 35 weeks gestation of (Acute) Thyroid disease during (Acute) conceived through in vitro fertilization (Acute) Supervision of with history of infertility (Acute) (Acute) Secondary amenorrhea (Resolved) Subchorionic hematoma (Resolved) s/p LTCS PPD # 2 1. routine post care 2. breast feeding- support given 3. rh positive 4. rubella immune
[2020-05-25 10:00] VITALS: BP 113/47; PULSE 76; RESP 18; TEMP 36.6
[2020-05-25] MEDS: Enoxaparin 40 MG/0.4 ML Syringe SC (10:02)
[2020-05-25] MEDS: Senna/Docusate Sodium 1 Tablet PO (10:02)
== END 2020-05-25 13:00 | disposition home or self-care (01) | DRG 788 ==
PROVIDERS: Admitting Provider Obstetrics & Gynecology; PCP Family Medicine; Referring Provider Obstetrics & Gynecology; Visit Provider Obstetrics & Gynecology
DX: O76 Abnormality in fetal heart rate and rhythm complicating labor and delivery (principal); O62.1 Secondary uterine inertia; O75.81 Maternal exhaustion complicating labor and delivery; O77.0 Labor and delivery complicated by meconium in amniotic fluid; O48.0 Post-term pregnancy; O33.9 Maternal care for disproportion, unspecified; O99.824 Streptococcus B carrier state complicating childbirth; O99.284 Endocrine, nutritional and metabolic diseases complicating childbirth; E03.9 Hypothyroidism, unspecified; Z3A.41 41 weeks gestation of pregnancy; Z37.0 Single live birth
CPT/HCPCS: 59025; 59050; 85025; 85027; 86850; 86900; 86901; 99218; 99251; J7120; A4216; G0378; G0463; J2405

== ENCOUNTER → 2020-07-02 | Outpatient (CLI) | payer OTHER, SELFPAY ==
[2020-05-28 13:37] VITALS: BMI 36.3
[2020-07-05 16:20] LABS: HPV Reflexed? NOT INDICATED
== END | disposition home or self-care (01) ==
LOC: LABSPEC 16:25
PROVIDERS: PCP Family Medicine; Referring Provider Nurse Practitioner Women's Health; Visit Provider Nurse Practitioner Women's Health
DX: Z12.4 Encounter for screening for malignant neoplasm of cervix (principal)
CPT/HCPCS: 88175; G0145

== ENCOUNTER → 2021-03-04 15:21 | Outpatient (CLI) | payer OTHER, SELFPAY ==
[2021-03-04 16:11] LABS: Hematocrit 43.1 % (37-47); Hemoglobin 14.7 g/dL (12.0-15.0); Mean Corp Hgb Conc 34.1 g/dL (32-36); Mean Corpuscular Hgb 31.1 pg (27.0-32.0); Mean Corpuscular Volume 91.1 fL (81-99); Mean Platelet Vol. 9.5 fl (6.2-12.0); Platelet Count 331 K/mm3 (150-450); RBC Distribution Width SD 40.1 fl (35.1-43.9); Red Blood Count 4.73 M/mm3 (4.2-5.4); White Blood Count 9.4 K/mm3 (4.4-11.0)
[2021-03-04 16:29] LABS: Hemoglobin A1c 5.1 % (3.8-5.6)
[2021-03-04 16:59] LABS: hCG Titer Quant., Serum < 1 mIU/mL (1-3)
[2021-03-04 17:24] LABS: HIV - WCH Non-Reactive (Nonreactive); Hepatitis B Surface Antigen Non-Reactive (Nonreactive); Hepatitis C Antibody Non-Reactive (Nonreactive); Rubella IgG Reactive (Nonreactive); Syphilis Antibodies Non-reactive; Vitamin D,25 Hydroxy 28.9 ng/mL
[2021-03-04 17:26] LABS: ALB/GLOB Ratio 1.2 RATIO (0.9-2.4); AST(SGOT) 12 U/L (15-37); Alanine Aminotransfer ALT/SGPT 25 U/L (13-56); Alkaline Phosphatase 51 U/L (45-117); Anion Gap 10 (5-15); BUN 12 mg/dL (7-18); BUN/Creat Ratio 12.7 RATIO (10-20); Calcium,Total 8.8 mg/dL (8.5-10.1); Chloride 104 mmol/L (98-107); Creatinine, Serum 0.94 mg/dL (0.55-1.02); EST Glomerular Filtration Rate 74 mL/min (>60); Est Glom Filt Rate - Afr Amer 90 mL/min (>60); Estradiol 56.4 pg/mL; Follicle Stimulating Hormone 5.5 mIU/mL; Globulin 3.4 g/dL (2.2-4.2); Glucose 119 mg/dL (74-106); Luteinizing Hormone 10.4 mIU/mL; Protein, Total 7.4 g/dL (6.4-8.2); Sodium Level 141 mmol/L (136-145); Thyroid Stim Hormone (TSH) 1.73 uIU/mL (0.358-3.74)
[2021-03-06 16:43] LABS: V-Zoster IgG (Immunity) 1454 index (Immune >165)
== END ==
PROVIDERS: PCP Family Medicine; Referring Provider Obstetrics & Gynecology Reproductive Endocrinology; Visit Provider Obstetrics & Gynecology Reproductive Endocrinology
DX: Z31.41 Encounter for fertility testing (principal)
CPT/HCPCS: 36415; 80053; 82306; 82670; 83001; 83002; 83036; 84144; 84146; 84403; 84443; 84702; 85027; 86703; 86762; 86780; 86787; 86803; 86900; 86901; 87340

== ENCOUNTER 2021-04-05 08:43 | Outpatient (CLI) | payer OTHER, SELFPAY ==
[2021-04-05 09:36] LABS: Progesterone Level 0.39 ng/mL (See Comment)
[2021-04-05 09:41] LABS: hCG Titer Quant., Serum < 1 mIU/mL (1-3)
[2021-04-05 09:59] LABS: Estradiol 62.4 pg/mL; Follicle Stimulating Hormone 5.1 mIU/mL; Luteinizing Hormone 10.7 mIU/mL; Thyroid Stim Hormone (TSH) 2.25 uIU/mL (0.358-3.74)
== END 2021-04-05 23:59 | disposition short-term general hospital (02) ==
LOC: LAB 08:46
PROVIDERS: PCP Family Medicine; Referring Provider Obstetrics & Gynecology Reproductive Endocrinology; Visit Provider Obstetrics & Gynecology Reproductive Endocrinology
DX: Z31.83 Encounter for assisted reproductive fertility procedure cycle (principal)
CPT/HCPCS: 36415; 82670; 83001; 83002; 84144; 84443; 84702

== ENCOUNTER 2021-04-12 11:24 | Outpatient (CLI) | payer OTHER, SELFPAY ==
[2021-04-12 12:06] LABS: Estradiol 180.8 pg/mL; Luteinizing Hormone 10.7 mIU/mL; Progesterone Level 0.25 ng/mL (See Comment)
== END 2021-04-12 23:59 | disposition short-term general hospital (02) ==
LOC: LAB 11:26
PROVIDERS: PCP Family Medicine; Referring Provider Obstetrics & Gynecology Reproductive Endocrinology; Visit Provider Obstetrics & Gynecology Reproductive Endocrinology
DX: Z31.83 Encounter for assisted reproductive fertility procedure cycle (principal)
CPT/HCPCS: 36415; 82670; 83002; 84144

== ENCOUNTER 2021-04-29 07:56 | Outpatient (CLI) | payer OTHER, SELFPAY ==
[2021-04-29 08:37] LABS: Estradiol 837.8 pg/mL
[2021-04-29 08:38] LABS: Progesterone Level 49.16 ng/mL (See Comment)
== END 2021-04-29 23:59 | disposition short-term general hospital (02) ==
LOC: LAB 07:57
PROVIDERS: PCP Family Medicine; Referring Provider Obstetrics & Gynecology Reproductive Endocrinology; Visit Provider Obstetrics & Gynecology Reproductive Endocrinology
DX: Z31.49 Encounter for other procreative investigation and testing (principal)
CPT/HCPCS: 36415; 82670; 84144

== ENCOUNTER 2021-05-03 14:28 | Outpatient (CLI) | payer OTHER, SELFPAY ==
[2021-05-03 15:18] LABS: hCG Titer Quant., Serum 14 mIU/mL (1-3)
[2021-05-03 15:19] LABS: Progesterone Level 43.35 ng/mL (See Comment)
== END 2021-05-03 23:59 | disposition home or self-care (01) ==
LOC: LAB 14:29
PROVIDERS: PCP Family Medicine; Visit Provider Obstetrics & Gynecology Reproductive Endocrinology
DX: Z32.00 Encounter for pregnancy test, result unknown (principal)
CPT/HCPCS: 36415; 84144; 84702

== ENCOUNTER 2021-05-06 08:38 | Outpatient (CLI) | payer OTHER, SELFPAY ==
[2021-05-06 09:46] LABS: Progesterone Level 46.21 ng/mL (See Comment)
[2021-05-06 09:51] LABS: hCG Titer Quant., Serum 16 mIU/mL (1-3)
[2021-05-06 09:53] LABS: Estradiol 1422.9 pg/mL
== END 2021-05-06 23:59 | disposition home or self-care (01) ==
PROVIDERS: PCP Family Medicine; Visit Provider Obstetrics & Gynecology Reproductive Endocrinology
DX: Z31.49 Encounter for other procreative investigation and testing (principal); Z32.00 Encounter for pregnancy test, result unknown
CPT/HCPCS: 36415; 82670; 84144; 84702

== ENCOUNTER 2021-05-08 07:57 | Outpatient (CLI) | payer OTHER, SELFPAY ==
[2021-05-08 08:32] LABS: hCG Titer Quant., Serum 7 mIU/mL (1-3)
[2021-05-08 08:38] LABS: Estradiol 55.6 pg/mL; Thyroid Stim Hormone (TSH) 2.95 uIU/mL (0.358-3.74)
[2021-05-08 10:04] LABS: Progesterone Level 5.71 ng/mL (See Comment)
== END 2021-05-08 23:59 | disposition home or self-care (01) ==
LOC: LAB 07:59
PROVIDERS: PCP Family Medicine; Referring Provider Obstetrics & Gynecology Reproductive Endocrinology; Visit Provider Obstetrics & Gynecology Reproductive Endocrinology
DX: O02.81 Inappropriate change in quantitative human chorionic gonadotropin (hCG) in early pregnancy (principal)
CPT/HCPCS: 36415; 82670; 84144; 84443; 84702

== ENCOUNTER 2021-05-24 08:07 | Outpatient (CLI) | payer OTHER, SELFPAY ==
[2021-05-24 08:38] LABS: Estradiol 1467.7 pg/mL; Luteinizing Hormone 5.2 mIU/mL
[2021-05-24 10:45] LABS: Progesterone Level < 0.21 ng/mL (See Comment)
== END 2021-05-24 23:59 | disposition home or self-care (01) ==
PROVIDERS: PCP Family Medicine; Referring Provider Obstetrics & Gynecology Reproductive Endocrinology; Visit Provider Obstetrics & Gynecology Reproductive Endocrinology
DX: Z31.83 Encounter for assisted reproductive fertility procedure cycle (principal)
CPT/HCPCS: 36415; 82670; 83002; 84144

== ENCOUNTER 2021-06-04 08:07 | Outpatient (CLI) | payer OTHER, SELFPAY ==
[2021-06-04 08:36] LABS: Estradiol 276.5 pg/mL
[2021-06-04 09:21] LABS: Progesterone Level 77.65 ng/mL (See Comment)
== END 2021-06-04 23:59 | disposition home or self-care (01) ==
LOC: LAB 08:08
PROVIDERS: PCP Family Medicine; Referring Provider Obstetrics & Gynecology Reproductive Endocrinology; Visit Provider Obstetrics & Gynecology Reproductive Endocrinology
DX: Z31.49 Encounter for other procreative investigation and testing (principal)
CPT/HCPCS: 36415; 82670; 84144

== ENCOUNTER 2021-06-10 08:51 | Outpatient (CLI) | payer OTHER, SELFPAY ==
[2021-06-10 10:07] LABS: Progesterone Level 48.72 ng/mL (See Comment)
[2021-06-10 10:25] LABS: hCG Titer Quant., Serum 321 mIU/mL (1-3)
== END 2021-06-10 23:59 | disposition home or self-care (01) ==
LOC: LAB 08:53
PROVIDERS: PCP Family Medicine; Referring Provider Obstetrics & Gynecology Reproductive Endocrinology; Visit Provider Obstetrics & Gynecology Reproductive Endocrinology
DX: Z32.00 Encounter for pregnancy test, result unknown (principal)
CPT/HCPCS: 36415; 84144; 84702

== ENCOUNTER 2021-06-12 08:18 | Outpatient (CLI) | payer OTHER, SELFPAY ==
[2021-06-12 08:58] LABS: hCG Titer Quant., Serum 681 mIU/mL (1-3)
[2021-06-12 09:04] LABS: Estradiol 1145.8 pg/mL; Thyroid Stim Hormone (TSH) 1.98 uIU/mL (0.358-3.74)
[2021-06-12 09:18] LABS: Progesterone Level 53.35 ng/mL (See Comment)
== END 2021-06-12 23:59 | disposition home or self-care (01) ==
LOC: LAB 08:18
PROVIDERS: PCP Family Medicine; Referring Provider Obstetrics & Gynecology Reproductive Endocrinology; Visit Provider Obstetrics & Gynecology Reproductive Endocrinology
DX: Z32.01 Encounter for pregnancy test, result positive (principal)
CPT/HCPCS: 36415; 82670; 84144; 84443; 84702

== ENCOUNTER 2021-06-19 11:33 | Outpatient (CLI) | payer OTHER, SELFPAY ==
--- NOTE | 2021-06-19 11:39 | US_ITS ---
STUDY: FIRST TRIMESTER OBSTETRICAL ULTRASOUND REASON FOR EXAM: Female, 30 years old WITH HX OF INF -- # sacs, #HB LMP: 05/12/2021. TECHNIQUE: Transvaginal TECHNICAL QUALITY: Adequate. PRIOR ULTRASOUND: None. FINDINGS: There is visualization of a single gestational sac in a normal intrauterine position. The mean sac diameter (MSD) measures 1.54 cm, indicating an estimated gestational age (EGA) of 6 weeks, 2 days. The gestational sac shape is within normal limits. There is a visualized yolk sac. The yolk sac measures 2.3 mm. The placenta is non-visualized. There is no demonstrated embryo ( pole). The estimated gestation age (EGA) by LMP is 5 weeks, 3 days. The estimated date of delivery (OMARI) by LMP is 02/16/2022. The estimated gestation age (EGA) by US is 6 weeks, 2 days. The estimated date of delivery (OMARI) by US is 02/10/2022. The uterus measures 9.2 cm x 6.4 cm x 5.3 cm. There is no demonstrated uterine fibroid. The cervix is closed. There is a 4 mm x 6.6 mm x 2.1 mm subchorionic hematoma. The right ovary measures 3.3 cm x 3.2 cm x 2.7 cm. There is no right ovarian cyst. There is no visualized right adnexal mass or complex lesion. The left ovary measures 2.8 cm x 2.4 cm x 2.8 cm. There is no left ovarian cyst. There is no visualized left adnexal mass or complex lesion. There is no fluid in the cul de sac. US/Transvaginal w/Preg US IMPRESSION: Intrauterine gestational sac with a mean gestational age of 6 weeks and 2 days. No pole is seen at this time. Small subchorionic hematoma. Electronically Signed: James Gonzalez MD at 13:06 EDT ,
[2021-06-19 12:47] LABS: Estradiol 411.5 pg/mL
[2021-06-19 13:02] LABS: hCG Titer Quant., Serum 8272 mIU/mL (1-3)
[2021-06-19 13:16] LABS: Progesterone Level 52.38 ng/mL (See Comment)
== END 2021-06-19 23:59 | disposition home or self-care (01) ==
PROVIDERS: PCP Family Medicine; Referring Provider Obstetrics & Gynecology Reproductive Endocrinology; Visit Provider Obstetrics & Gynecology Reproductive Endocrinology
DX: O09.91 Supervision of high risk pregnancy, unspecified, first trimester (principal); Z3A.01 Less than 8 weeks gestation of pregnancy
CPT/HCPCS: 36415; 76817; 82670; 84144; 84702

== ENCOUNTER 2021-06-26 08:39 | Outpatient (CLI) | payer OTHER, SELFPAY ==
--- NOTE | 2021-06-26 08:42 | US_ITS ---
STUDY: FIRST TRIMESTER OBSTETRICAL ULTRASOUND REASON FOR EXAM: Female, 30 years old W/HX OF INFERTILITY -- IVF DATING, VIABILITY -- # SACS, # HB LMP: 05/12/2021. TECHNIQUE: Transvaginal TECHNICAL QUALITY: Adequate. PRIOR ULTRASOUND: Comparison is made with prior examination dated 06/19/2021. FINDINGS: There is visualization of a single gestational sac in a normal intrauterine position. The mean sac diameter (MSD) measures 1.79 cm, indicating an estimated gestational age (EGA) of 6 weeks, 4 days. The gestational sac shape is within normal limits. There is a visualized yolk sac. The yolk sac measures 2.7 mm. The placenta is non-visualized. There is visualization of a live embryo. The crown-rump length (CRL) measures 4.4 mm, indicating an estimated gestational age (EGA) of 6 weeks, 2 days. There is demonstrated cardiac activity with a heart rate of 114 bpm. The estimated gestation age (EGA) by LMP is 6 weeks, 3 days. The estimated date of delivery (OMARI) by LMP is 02/16/2022. The estimated gestation age (EGA) by US is 6 weeks, 3 days. The estimated date of delivery (OMARI) by US is 02/16/2022. The uterus measures 9.9 cm x 6.2 cm x 5.2 cm. There is no demonstrated uterine fibroid. The cervix is closed. Small subchorionic hematoma measuring 9 mm x 8 mm x 7 mm. The right ovary measures 2.9 cm x 2.8 cm x 2.5 cm. There is no right ovarian cyst. There is no visualized right adnexal mass or complex lesion. The left ovary was not visualized. There is no fluid in the cul de sac. US/Transvaginal w/Preg US IMPRESSION: Single live intrauterine gestation with a mean gestational age of 6 weeks and 3 days. Small subchorionic hematoma. Electronically Signed: aJmes Gonzalez MD at 9:49 EDT ,
[2021-06-26 10:27] LABS: Estradiol 861.1 pg/mL
[2021-06-26 11:50] LABS: Progesterone Level 56.93 ng/mL (See Comment)
== END 2021-06-26 23:59 | disposition home or self-care (01) ==
PROVIDERS: PCP Family Medicine; Referring Provider Obstetrics & Gynecology Reproductive Endocrinology; Visit Provider Obstetrics & Gynecology Reproductive Endocrinology
DX: O09.90 Supervision of high risk pregnancy, unspecified, unspecified trimester (principal); Z3A.00 Weeks of gestation of pregnancy not specified
CPT/HCPCS: 36415; 76817; 82670; 84144; 84702

== ENCOUNTER 2021-07-03 11:27 | Outpatient (CLI) | payer OTHER, SELFPAY ==
--- NOTE | 2021-07-03 11:30 | US_ITS ---
STUDY: FIRST TRIMESTER OBSTETRICAL ULTRASOUND REASON FOR EXAM: Female, 30 years old W/HX OF INFERTILITY LMP: 05/12/2021. TECHNIQUE: Transvaginal TECHNICAL QUALITY: Adequate. PRIOR ULTRASOUND: Comparison is made with prior examination dated 06/26/2021. FINDINGS: There is visualization of a single gestational sac in a normal intrauterine position. The mean sac diameter (MSD) measures 3.07 cm, indicating an estimated gestational age (EGA) of 8 weeks, 1 days. The gestational sac shape is within normal limits. There is a visualized yolk sac. The yolk sac measures 4.7 mm. There is visualization of a live embryo. The crown-rump length (CRL) measures 1.23 cm, indicating an estimated gestational age (EGA) of 7 weeks, 3 days. There is demonstrated cardiac activity with a heart rate of 143 bpm. The estimated gestation age (EGA) by LMP is 7 weeks, 3 days. The estimated date of delivery (OMARI) by LMP is 02/16/2022. The estimated gestation age (EGA) by US is 7 weeks, 5 days. The estimated date of delivery (OMARI) by US is 02/14/2022. The uterus measures 9.8 cm x 7 cm x 5.9 cm. There is no demonstrated uterine fibroid. The cervix is closed. The right ovary measures 3.5 cm x 3.3 cm x 2.7 cm. There is no right ovarian cyst. There is no visualized right adnexal mass or complex lesion. The left ovary measures 2.4 cm x 2.7 cm x 2.7 cm. There is no left ovarian cyst. There is no visualized left adnexal mass or complex lesion. There is minimal fluid in the cul de sac. US/Transvaginal w/Preg US IMPRESSION: Single live intrauterine gestation with a mean gestational age of 7 weeks and 5 days. Electronically Signed: James Gonzalez MD at 12:58 EDT ,
[2021-07-03 12:56] LABS: Estradiol 926.6 pg/mL
[2021-07-03 12:57] LABS: Progesterone Level 53.52 ng/mL (See Comment)
[2021-07-03 13:15] LABS: hCG Titer Quant., Serum 73113 mIU/mL (1-3)
== END 2021-07-03 23:59 | disposition home or self-care (01) ==
LOC: US 11:29
PROVIDERS: PCP Family Medicine; Referring Provider Obstetrics & Gynecology Reproductive Endocrinology; Visit Provider Obstetrics & Gynecology Reproductive Endocrinology
DX: O09.00 Supervision of pregnancy with history of infertility, unspecified trimester (principal)
CPT/HCPCS: 36415; 76817; 82670; 84144; 84702

== ENCOUNTER → 2021-07-24 | Outpatient (CLI) | payer OTHER, SELFPAY ==
[2021-07-24 17:21] LABS: Amphetamine Urine VISTA NEGATIVE (<1000 ng/mL); Barbiturate Urine VISTA NEGATIVE (< 200 ng/mL); Benzodiazepine Urine VISTA NEGATIVE (< 200 ng/mL); Cocaine Urine VISTA NEGATIVE (< 300 ng/mL); Ecstacy Urine VISTA NEGATIVE (< 500 ng/mL); Methadone Urine VISTA NEGATIVE (< 300 ng/mL); PCP Urine VISTA NEGATIVE (< 25 ng/mL); THC Urine VISTA NEGATIVE (< 50 ng/mL); Vista UDS pH Range 5
[2021-07-27 18:07] LABS: Chlamydia By Nucleic Acid AMP Negative (Negative)
[2021-07-27 20:17] LABS: Gonococcus By Nucleic Acid AMP Negative (Negative)
== END | disposition home or self-care (01) ==
LOC: LABSPEC 16:07
PROVIDERS: PCP Family Medicine; Referring Provider Obstetrics & Gynecology; Visit Provider Obstetrics & Gynecology
DX: Z34.90 Encounter for supervision of normal pregnancy, unspecified, unspecified trimester (principal)
CPT/HCPCS: 80307; 87086; 87088; 87491; 87591

== ENCOUNTER → 2021-07-25 | Outpatient (CLI) | payer OTHER, SELFPAY ==
[2021-07-25 12:23] LABS: Absolute Lymphocyte Count 1.95 X10^3/uL (0.83-4.51); Absolute Neutrophil Count 6.4 X10^3/uL (2.0-7.7); Basophil# 0.03 X10^3/uL; Basophil% 0.3 % (0-1); Eosinophils% 1.1 % (0-5); Hematocrit 40.7 % (37-47); Lymphocyte # 1.95 X10^3/ul (0.83-4.51); Lymphocyte % 21.6 % (19-41); Mean Corp Hgb Conc 34.4 g/dL (32-36); Mean Corpuscular Hgb 31.5 pg (27.0-32.0); Mean Corpuscular Volume 91.5 fL (81-99); Mean Platelet Vol. 8.7 fl (6.2-12.0); Monocyte% 5.5 % (0-10); NRBC Flagged by Analyzer 0 % (0-5); Neutrophil # 6.41 X10^3/uL (2.7-7.7); Neutrophil % 70.9 % (47-70); Platelet Count 326 K/mm3 (150-450); RBC Distribution Width SD 40.3 fl (35.1-43.9); Red Blood Count 4.45 M/mm3 (4.2-5.4)
[2021-07-25 12:55] LABS: Glucose Challenge Gest 1H 50g 127 mg/dL (70-140); T4 Free Direct 0.99 ng/dL (0.76-1.46); Thyroid Stim Hormone (TSH) 1.21 uIU/mL (0.358-3.74)
[2021-07-25 14:18] LABS: HIV - WCH Non-Reactive (Nonreactive); Hepatitis B Surface Antigen Non-Reactive (Nonreactive); Hepatitis C Antibody Non-Reactive (Nonreactive); Rubella IgG Reactive (Nonreactive); Syphilis Antibodies Non-reactive
== END | disposition home or self-care (01) ==
LOC: LAB 12:07
PROVIDERS: PCP Family Medicine; Visit Provider Obstetrics & Gynecology
DX: O99.280 Endocrine, nutritional and metabolic diseases complicating pregnancy, unspecified trimester (principal); E03.9 Hypothyroidism, unspecified
CPT/HCPCS: 36415; 82950; 84439; 84443; 85025; 86703; 86762; 86780; 86803; 86850; 86900; 86901; 87340

== ENCOUNTER → 2021-11-29 | Outpatient (CLI) | payer BC, SELFPAY ==
[2021-11-29 14:34] LABS: Absolute Lymphocyte Count 1.68 X10^3/uL (0.83-4.51); Absolute Neutrophil Count 6.7 X10^3/uL (2.0-7.7); Basophil# 0.02 X10^3/uL; Basophil% 0.2 % (0-1); Eosinophils% 1.1 % (0-5); Hematocrit 36.3 % (37-47); Hemoglobin 12.4 g/dL (12.0-15.0); Lymphocyte # 1.68 X10^3/ul (0.83-4.51); Lymphocyte % 18.7 % (19-41); Mean Corp Hgb Conc 34.2 g/dL (32-36); Mean Corpuscular Hgb 31.1 pg (27.0-32.0); Mean Platelet Vol. 9.2 fl (6.2-12.0); Monocyte# 0.41 X10^3/uL; Monocyte% 4.6 % (0-10); NRBC Flagged by Analyzer 0 % (0-5); Neutrophil % 74.7 % (47-70); Platelet Count 257 K/mm3 (150-450); RBC Distribution Width SD 42.5 fl (35.1-43.9); Red Blood Count 3.99 M/mm3 (4.2-5.4)
[2021-11-29 14:57] LABS: Glucose Challenge Gest 1H 50g 154 mg/dL (70-140)
[2021-11-29 21:05] LABS: Thyroid Stim Hormone (TSH) 1.23 uIU/mL (0.358-3.74)
== END | disposition home or self-care (01) ==
LOC: LAB 13:58
PROVIDERS: Obstetrics & Gynecology; PCP Family Medicine; Referring Provider Obstetrics & Gynecology; Visit Provider Obstetrics & Gynecology
DX: O99.283 Endocrine, nutritional and metabolic diseases complicating pregnancy, third trimester (principal); Z13.1 Encounter for screening for diabetes mellitus; E03.9 Hypothyroidism, unspecified; Z3A.28 28 weeks gestation of pregnancy
CPT/HCPCS: 36415; 82950; 84439; 84443; 85025

== ENCOUNTER → 2021-12-05 | Outpatient (CLI) | payer BC, SELFPAY ==
[2021-12-05 10:46] LABS: Glucose GTT-Gestation. Fasting 86 mg/dL (<105)
[2021-12-05 11:44] LABS: Glucose GTT-Gestational 1 Hr 142 mg/dL (<190)
[2021-12-05 12:58] LABS: Glucose GTT-Gestational 2 Hr 154 mg/dL (<165)
[2021-12-05 13:56] LABS: Glucose GTT-Gestational 3 Hr 100 L (<145)
== END | disposition home or self-care (01) ==
LOC: LAB 09:52
PROVIDERS: PCP Family Medicine; Visit Provider Obstetrics & Gynecology
DX: Z13.1 Encounter for screening for diabetes mellitus (principal)
CPT/HCPCS: 36415; 82951; 82952

== ENCOUNTER → 2021-12-20 | Outpatient (CLI) | payer BC, SELFPAY ==
--- NOTE | 2021-12-20 12:35 | US_ITS ---
STUDY: SECOND AND THIRD TRIMESTER OBSTETRICAL ULTRASOUND - LIMITED REASON FOR EXAM: Female, 31 years old growth PRIOR ULTRASOUND: None. TECHNIQUE: Transabdominal TECHNICAL QUALITY: Adequate. FINDINGS: There is a single intrauterine fetus. The fetus is in a cephalic presentation. There is demonstrated cardiac activity with a heart rate of 143 bpm. There is a normal amniotic fluid volume. The largest amniotic fluid pocket measures 6.23 cm. The amniotic fluid index (JODY) is 14.4 cm. The placenta is posterior and fundal. There are Grade 3 placental changes. The cervix measures 3.13 cm in length. BIOMETRY: BPD: 7.79 cm: 31 weeks, 2 days HC: 28.94 cm: 31 weeks, 6 days AC: 28.66 cm: 32 weeks, 5 days FL: 5.89 cm: 30 weeks, 5 days age by current US: 31 weeks, 3 days. OMARI by current US: 02/18/2022. Estimated weight: 1876 grams, +/- 281 grams, 47 percentile. US/OB Limited With Biometrics IMPRESSION: Single intrauterine with an estimated gestational age by ultrasound of 31 weeks and 3 days and an OMARI of 02/18/2022. Electronically Signed: Coral Almaguer MD at 16:43 EDT ,
== END | disposition home or self-care (01) ==
LOC: US 12:34
PROVIDERS: PCP Family Medicine; Referring Provider Obstetrics & Gynecology; Visit Provider Obstetrics & Gynecology
DX: O09.93 Supervision of high risk pregnancy, unspecified, third trimester (principal); Z3A.31 31 weeks gestation of pregnancy
CPT/HCPCS: 76816

== ENCOUNTER → 2022-01-10 | Outpatient (CLI) | payer BC, SELFPAY ==
[2022-01-10 15:23] LABS: T4 Free Direct 0.81 ng/dL (0.76-1.46); Thyroid Stim Hormone (TSH) 1.14 uIU/mL (0.358-3.74)
== END | disposition home or self-care (01) ==
LOC: LAB 14:35
PROVIDERS: PCP Family Medicine; Visit Provider Obstetrics & Gynecology
DX: E03.9 Hypothyroidism, unspecified (principal)
CPT/HCPCS: 36415; 84439; 84443

== ENCOUNTER → 2022-01-24 | Outpatient (CLI) | payer BC, SELFPAY ==
--- NOTE | 2022-01-24 12:02 | US_ITS ---
STUDY: SECOND AND THIRD TRIMESTER OBSTETRICAL ULTRASOUND - LIMITED REASON FOR EXAM: Female, 31 years old growth LMP: 05/12/2021. PRIOR ULTRASOUND: Comparison is made with prior study dated 12/20/2021. TECHNIQUE: Transabdominal TECHNICAL QUALITY: Adequate. FINDINGS: There is a single intrauterine fetus. The fetus is in a cephalic presentation. There is demonstrated cardiac activity with a heart rate of 1:30 bpm. There is a normal amniotic fluid volume. The largest amniotic fluid pocket measures 4.5 cm. The amniotic fluid index (JODY) is 12.6 cm. The placenta is fundal and posterior in location. There are Grade 3 placental changes. The cervix was not measured due to the head positioning. BIOMETRY: BPD: 8.73 cm: 35 weeks, 2 days HC: 31.88 cm: 35 weeks, 6 days AC: 33.27 cm: 37 weeks, 1 days FL: 7.09 cm: 36 weeks, 2 days Age by LMP: 36 weeks, 5 days. OMARI by LMP: 02/17/2020. age by prior US: 36 weeks, 3 days. OMARI by prior US: 02/18/2022. age by current US: 36 weeks, 0 days. OMARI by current US: 02/22/2020. Estimated weight: 3020 grams, +/- 453 grams, 55.4 percentile. US/OB Limited With Biometrics IMPRESSION: Single live uterine gestation with mean gestational age of 36 weeks and 3 days. The measurements obtained today fall within normal expected range. Electronically Signed: James Gonzalez MD at 14:02 EDT ,
== END | disposition home or self-care (01) ==
PROVIDERS: PCP Family Medicine; Referring Provider Obstetrics & Gynecology; Visit Provider Obstetrics & Gynecology
DX: Z34.93 Encounter for supervision of normal pregnancy, unspecified, third trimester (principal); Z98.890 Other specified postprocedural states
CPT/HCPCS: 76816; 87081

== ENCOUNTER 2022-02-10 05:35 | Inpatient (IN) | payer BC, SELFPAY ==
[2022-02-10] VITALS (20 sets, daily range): BP systolic 107–135; BP diastolic 53–82; PULSE 72–108; RESP 14–18; TEMP 36.7–37.6; O2SAT 93–99; BMI 36.0
[2022-02-10] MEDS: Lactated Ringers 1,000 ML 999 ML IV (06:20)
[2022-02-10 06:28] LABS: Absolute Lymphocyte Count 4.52 X10^3/uL (0.83-4.51); Absolute Neutrophil Count 3.5 X10^3/uL (2.0-7.7); Basophil# 0.07 X10^3/uL; Basophil% 0.8 % (0-1); Eosinophil# 0.07 X10^3/uL; Eosinophils% 0.8 % (0-5); Hematocrit 34.9 % (37-47); Hemoglobin 11.2 g/dL (12.0-15.0); Lymphocyte # 4.52 X10^3/ul (0.83-4.51); Lymphocyte % 51.4 % (19-41); Mean Corp Hgb Conc 32.1 g/dL (32-36); Mean Corpuscular Hgb 29.8 pg (27.0-32.0); Mean Corpuscular Volume 92.8 fL (81-99); Mean Platelet Vol. 9.3 fl (6.2-12.0); Monocyte# 0.51 X10^3/uL; Monocyte% 5.8 % (0-10); NRBC Flagged by Analyzer 0 % (0-5); Neutrophil # 3.48 X10^3/uL (2.7-7.7); Neutrophil % 39.6 % (47-70); POSITIVE MORPHOLOGY YES; Platelet Count 201 K/mm3 (150-450); RBC Distribution Width CV 14.1 % (11.6-14.6); RBC Distribution Width SD 47.8 fl (35.1-43.9); Red Blood Count 3.76 M/mm3 (4.2-5.4); White Blood Count 8.8 K/mm3 (4.4-11.0)
[2022-02-10 06:31] LABS: Differential Indicated SCAN CRITERIA MET
[2022-02-10] MEDS: Acetaminophen 500 MG Tablet 1000 MG PO ×3 (06:38→18:44)
[2022-02-10 07:04] LABS: Atypical Lymphocyte 1+ %
[2022-02-10] MEDS: Sodium Citrate/Citric Acid 30 ML UDC PO (07:12)
--- NOTE | 2022-02-10 07:13 | HP.PCM.OB_ITS ---
HPI - General General Date of Admission: 02/10/22 HPI Narrative NO TEAGUE, is a 31 F who presents for RLTCS scheduled. Maternal Data Information OMARI Calculator Estimated Delivery Date Method Current WG Current Estimate 02/16/22 Manual 39w 1d Other Estimates 02/14/22 Ultrasound #1 39w 3d Final OMARI Source: LMP PFSH PFS Medical History (Updated 02/10/22 @ 06:03 by No Krishnamurthy) Infertility Thyroid disorder Home Medications vitamin#30 30 mg iron-10 mg iron-folic acid 1 mg-omg3 capsule 1 cap PO DAILY 10/27/19 [History Last Taken 02/09/22] levothyroxine 50 mcg tablet 50 mcg PO DAILY hypothyriod 02/10/22 [History Last Taken 02/09/22] Allergy/AdvReac Type Severity Reaction Status Date / Time amoxicillin AdvReac Intermediate rash Verified 02/10/22 05:44 sulfamethoxazole AdvReac Intermediate rash Verified 02/10/22 05:44 [From ] trimethoprim [From ] AdvReac Intermediate rash Verified 02/10/22 05:44 Family History Grandfather Myocardial infarction Aunt Breast cancer great aunt Surgical History H/O knee surgery S/P Social History current occupational status: employed current occupation: [employer] Smoking Status: Never smoker alcohol intake: current details: social- pre substance use type: does not use caffeine: Yes what type of physical activity do you participate in: walking seatbelt use: always do you feel safe at home: Yes additional social history: [employer] History 2 Elective abortions Hx Para 1 Spontaneous abortions Hx # Term Pregnancies Ectopic pregnancies Hx # Pregnancies Multiple births # of living children 1 Past Pregnancies Del. Date Name GA/Weeks Outcome Route Bth Weight Gen Labor Lgth Anesthesia Del Locatn Provider FOB 05/23/20 Halo 41 live - full term 7lbs 12oz Female epidural [facility] GP Delivery Date: 05/23/20 Last Updated by: Bri Houston admitted for induction for late term, pushed 2.5 hours with no descent, had for arrest of descent and cephalopelvic disproportion. Future C/S Visit Details Expected Delivery Route/Plan RLTCS Plans Covid status: discussed Flu vaccine: given Tdap vaccine: [] Rhogam: [] LARC form signed: [] Problem list reviewed and updated with the most current plan of care details and appropriate orders placed. Relevant counseling for the gestational age provided. Continue routine care and follow up unless otherwise noted in visit notes/problem list details OB Flowsheet Initial Weight: 172 lb Date -?-?-?-?-?-?-?-?-?-?-?-?- EGA Weight BP Urine Prot -?-?-?-?-?-?-?-?-?-?-?-?- Glucose FHR FuHt Pres Dilation -?-?-?-?-?-?-?-?-?-?-?-?- Effaced St Visit Note 07/24/21 -?-?-?-?-?-?-?-?-?-?-?-?- 10w 3d 172 lb 2 oz (+2 oz) 120/78 -?-?-?-?-?-?-?-?-?-?-?-?- 160 -?-?-?-?-?-?-?-?-?-?-?-?- SM- no vb crampi ng 08/21/21 -?-?-?-?-?-?-?-?-?-?-?-?- 14w 3d 180 lb (+8 lb) 110/80 Negative -?-?-?-?-?-?-?-?-?-?-?-?- Negative 147 -?-?-?-?-?-?-?-?-?-?-?-?- JV- no lof, vagi nal bleeding, or cramping.synthroid refilled. will need to recheck mid 2nd trimester. 09/19/21 -?-?-?-?-?-?-?-?-?-?-?-?- 18w 4d 180 lb (+8 lb) 90/60 Negative -?-?-?-?-?-?-?-?-?-?-?-?- Negative 145 -?-?-?-?-?-?-?-?-?-?-?-?- JV- pt still hav ing some GI cramping (up high abdomen) will prescribe reglan. anatomy scan normal. 10/18/21 -?-?-?-?-?-?-?-?-?-?--?-?- 22w 5d 186 lb (+14 lb) 110/64 Negative -?-?-?-?-?-?-?-?-?-?-?-?- Negative 147 -?-?-?-?-?-?-?-?-?-?-?-?- JV- no lof, vagi nal bleeding, or cramping. echo was done and results are pending. 11/15/21 -?-?-?-?-?-?-?-?-?-?-?-?- 26w 5d 191 lb (+19 lb) 120/82 Negative -?-?-?-?-?-?-?-?-?-?-?-?- Negative 145 28 -?-?-?-?-?-?-?-?-?-?-?-?- SM- no vb lof go od fm n oregular ctx 11/29/21 -?-?-?-?-?-?-?-?-?--?-?-?- 28w 5d 189 lb (+17 lb) 103/65 Negative -?-?-?-?-?-?-?-?-?-?-?-?- Negative 150 -?-?-?-?-?-?-?-?-?-?-?-?- JV- no lof, vagi nal bleeding, or dec 12/13/21 -?-?-?-?-?-?-?-?-?-?-?-?- 30w 5d 194 lb (+22 lb) 112/72 -?-?-?-?-?-?-?-?-?-?-?-?- -?-?-?-?-?-?-?-?-?-?-?-?- SM- no vb lof go od fm no regular ctx 12/27/21 -?-?-?-?-?-?-?-?-?-?-?-?- 32w 5d 193 lb (+21 lb) 100/65 Negative -?-?-?-?-?-?-?-?-?-?-?-?- Negative 130 33 -?-?-?-?-?-?-?-?-?-?-?-?- SM- no vb lof go od fm no regulr ctx 01/10/22 -?-?-?-?-?-?-?-?-?-?-?-?- 34w 5d 197 lb (+25 lb) 125/81 -?-?-?-?-?-?-?-?-?-?-?-?- 135 35 -?-?-?-?-?-?-?-?-?-?-?-?- SM_ no vb lof go od fm no reulgar ctx 01/24/22 -?-?-?-?-?-?-?-?-?-?-?-?- 36w 5d 201 lb (+29 lb) 136/80 -?-?-?-?-?-?-?-?-?-?-?-?- 120 36 -?-?-?-?-?-?-?-?-?-?-?-?- SM- NST reactive no vb lof good fm no regular ctx gbs done 01/31/22 -?-?-?-?-?-?-?-?-?-?-?-?- 37w 5d 205 lb (+33 lb) 117/74 Trace -?-?-?-?-?-?-?-?-?-?-?-?- Negative 130 37 1 -?-?-?-?-?-?-?-?-?-?-?-?- 70 -3 JV- NST re active. has rpt section scheduled with SM on 02/10. 02/07/22 -?-?-?-?-?-?-?-?-?-?-?-?- 38w 5d 206 lb 6 oz (+34 lb 6 oz) 122/78 Negative -?-?-?-?-?-?-?-?-?-?-?-?- Negative 140 -?-?-?-?-?-?-?-?-?-?-?-?- JV- nst reactive . consent signed today. body wash and preop drink given. 02/10/22 -?-?-?-?-?-?-?-?-?-?-?-?- 39w 1d 203 lb 9.6 oz (+31 lb 9.6 oz) 135/78 135/78 -?-?-?-?-?-?-?-?-?-?-?-?- -?-?-?-?-?-?-?-?-?-?-?-?- ROS Constitutional Constitutional: Reports systems reviewed and no addt'l complaints, except as documented Eyes Eyes: Denies change in vision ENT HEENT: Reports systems reviewed and no addt'l complaints, except as documented; Denies headache(s) Cardiovascular Cardiovascular: Reports systems reviewed and no addt'l complaints, except as documented; Denies chest pain or dyspnea Respiratory/Chest Respiratory/Chest: Reports systems reviewed and no addt'l complaints, except as documented Gastrointestinal Gastrointestinal: Reports systems reviewed and no addt'l complaints, except as documented; Denies abdominal pain Genitourinary Genitourinary: Reports systems reviewed and no addt'l complaints, except as documented, contractions Details: present (irregular) and movement Details: present; Denies dysuria or genital lesions Musculoskeletal Musculoskeletal: Reports systems reviewed and no addt'l complaints, except as documented Neurologic Neurologic: Reports systems reviewed and no addt'l complaints, except as documented Endocrine Endocrinology: Reports systems reviewed and no addt'l complaints, except as documented Vital Signs Vital Signs Vital Signs: 02/10/22 06:36 02/10/22 05:48 02/10/22 05:48 Temperature 98.6 F Temperature Source Temporal Pulse Rate 108 H 106 H Respiratory Rate 18 Blood Pressure 135/78 H 135/78 H Blood Pressure Mean 97 BP Systolic 135 BP Diastolic 78 Blood Pressure Source Monitor Blood Pressure Position Semi-Fowlers Blood Pressure Location Left Arm Pulse Ox 99 Oxygen Delivery Method Room Air 11/14/22 05:47 02/10/22 05:48 02/10/22 05:48 Temperature Temperature Source Temporal Pulse Rate Respiratory Rate Blood Pressure Blood Pressure Mean BP Systolic BP Diastolic Blood Pressure Source Blood Pressure Position Blood Pressure Location Pulse Ox 95 98 Oxygen Delivery Method 02/10/22 05:48 Temperature 98.6 F Temperature Source Pulse Rate Respiratory Rate Blood Pressure Blood Pressure Mean BP Systolic BP Diastolic Blood Pressure Source Blood Pressure Position Blood Pressure Location Pulse Ox Oxygen Delivery Method Weight Weight: 203 lb 9.6 oz Body Mass Index (BMI) 36.0 Physical Exam Const alert, oriented x3, no apparent distress and healthy appearing HEENT normocephalic and moist oral mucous membranes Head and Scalp: atraumatic Neck full ROM, no lymphadenopathy, supple and thyroid normal General: trachea midline Lymph Lymphatic: no lymphadenopathy noted Chest inspection of chest normal Resp normal respiratory effort Cardio regular rate GI normal to inspection, nondistended, normoactive bowel sounds, soft to palpation and non-tender Inspection: gravid external exam normal Manual OB Exam: estimated gestational size appropriate, presentation cephalic, dilated, effaced and station Extremity normal to inspection General Extremity: Negative for edema Skin no rashes or lesions noted Neuro no focal motor deficits and deep tendon reflexes 2+ bilaterally Motor Exam: strength 5/5 throughout and clonus absent Psych mental status grossly normal Labs Labs Labs: Blood Type A POSITIVE Antibody Screen NEGATIVE Hct 34.9 % (37-47) L Hgb 11.2 g/dL (12.0-15.0) L Pap Smear Positive Obstetrics US Syphilis Total Ab Non-reactive VZV IgG Antibody 1454 index (Immune >165) Rubella IgG Antibody Reactive (Nonreactive) Hep Bs Antigen Non-Reactive (Nonreactive) Chlamydia DNA (GARCIA) Negative (Negative) Neisseria gonorrhoeae DNA (GARCIA) Negative (Negative) HIV 1&2 Antibody Non-Reactive (Nonreactive) Glucose 1 Hr 50 gm 154 mg/dL (70-140) H Rhogam given: No Assessment & Plan (1) Hypothyroidism: COMMENT: syntrhroid. check labs q trimester (2) History of in vitro fertilization: COMMENT: weekly nsts after 36. deliver 39. echo and growth nl, repeat growth @ 36 12/20 norm growth (3) : QUALIFIERS: Weeks of gestation: 38 weeks Qualified Code(s): Z3A.38 - 38 weeks gestation of COMMENT: GBS neg, Declines NIPT afp and carrier testing. nl anatomy (4) Supervision of with history of infertility: COMMENT: PRR OMARI 02/16/22 girl PC Halo Vahid (5) Previous delivery affecting : COMMENT: plan RLTCS, scheduled for 02/10 @ 7:30am with SM (6) Abnormal glucose affecting : COMMENT: 1hr gtt (154), nl 3 hour GTT PLAN: Plan admit for RLTCS Charges/Coding Procedures Urinary/Genital 52xxx-59xxx: [id number] Delivery [facility]
[2022-02-10] MEDS: Clindamycin 900 MG/50 ML BAG 75 MG IV (07:16)
--- NOTE | 2022-02-10 07:18 | OP.PCM_ITS ---
Assessment & Plan (1) Previous delivery affecting : COMMENT: plan RLTCS, scheduled for 02/10 @ 7:30am with (2) Supervision of with history of infertility: COMMENT: PRR OMARI 02/16/22 girl PC Halo Vahid (3) : QUALIFIERS: Weeks of gestation: 38 weeks Qualified Code(s): Z3A.38 - 38 weeks gestation of COMMENT: GBS neg, Declines NIPT afp and carrier testing. nl anatomy (4) History of in vitro fertilization: COMMENT: weekly nsts after 36. deliver 39. echo and growth nl, repeat growth @ 36 12/20 norm growth (5) Hypothyroidism: COMMENT: syntrhroid. check labs q trimester (6) delivery delivered: COMMENT: RLTCS girl 39 Maternal Data Information OMARI Calculator Estimated Delivery Date Method Current WG Current Estimate 02/16/22 Manual 39w 1d Other Estimates 02/14/22 Ultrasound #1 39w 3d Final OMARI Source: LMP Details Operative Information Pre-Operative Diagnosis: Previous Post-Operative Diagnosis: same Indications for : Repeat Elective Classification: Scheduled Type of Anesthesia: Spinal Special Medications: none Antibiotic Given: Ancef 2 grams IV x1 Drain: Argueta to straight drain Estimated Blood Loss: 800 Fluids Replaced: crystalloid Findings Description of Procedure: Spinal anesthesia was placed without difficulty. Argueta catheter was placed. The patient was placed in the dorsal supine position with leftward tilt. Patient was prepped and draped in the normal sterile fashion. Pfannenstiel skin incision was made with the scalpel and carried through to the underlying layer of fascia with the scalpel. Fascia was nicked in the midline and the incision extended laterally. The rectus bellies were dissected off superiorly and inferiorly with out complication both sharply and bluntly. The peritoneum was entered digitally. The incision was stretched and a low transverse uterine incision was made with the scalpel. The 's head was delivered atrauma tically followed by the anterior and posterior shoulders without complication the rest of the infant delivered. The cord was clamped and cut and the infant was handed off to awaiting nurse. The placenta was delivered spontaneously immediately following and was noted to be intact and have a three-vessel cord. The uterus was exteriorized cleared of all clots and debris, and the incision was closed in a double layer closure using #1 Monocryl. The ovaries and fallopian tubes were noted to be within normal limits. The uterus was returned to the maternal abdomen and gutters were cleared of all clots and debris. The peritoneum was closed with 3-0 Monocryl in a running fashion. Gloves were changed prior to fascial closure. Fascia was closed with 0 PDS in a running fashion. Subcutaneous tissue was copiously irrigated and the skin was closed with 3-0 Monocryl in a subcuticular fashion. Mepilex dressing was applied without complication. Patient was taken to recovery in stable condition. It was discussed with the patient that based on the clinical information obtained during this encounter, combined with her history, at this time I would recommend cesareans for future deliveries if further pregnancies are desired. Amniotic Membrane Rupture Type: Artificial Amniotic Fluid Description: Clear Placenta Disposition: [facility] Cord Vessel Description: 3 Vessels Cord Entanglement: None Delayed Cord Clamping: Yes Complications Risks of Surgery Discussed w/Patient: Bleeding, Infection, Need for Future C- Sections and Injury to surrounding structure(s) including bowel and bladder Vaginal Delivery Complication Complications: None Admit VTE Documentation VTE Present on Admission: No VTE Mechan Device Prophylaxis: SCD's Procedures Urinary/Genital [id number]: [id number] Delivery [facility]
--- NOTE | 2022-02-10 07:20 | DCINST_ITS ---
Discharge Instructions Diet Discharge Diet: No restrictions Activity Discharge Activity: Return to Normal Activity, May Drive (when pain free and off narcotic pain meds), May Shower and May Take a Tub Bath (in 4 weeks) May resume sexual activity in: 6 weeks Weight Bearing Status: Full weight bearing Lifting Restrictions: under 30 lbs for 6 weeks Dressing / Incision Call your doctor if your incision/area has: Continuous Slow Oozing, Sudden Increased Bleeding, Increased Pain/ Swelling, Increased Redness, Foul Smelling Discharge and - Call your doctor if you observe: Fever of 101 or Higher, Using more than 1 pad per hour, Shortness of breath, Chest pain and Uncontrolled pain Suture Line Care: Avoid Pulling/Pushing and Avoid Pinching/Bending Change Dressing in: 1 week (leave open to air after removed) Remove Dressing in: 1 week (if present) Cleanse incision/area with: Soap & Water and Keep Dressing Clean & Dry Follow Up Care Please Follow Up With: Nedra Amaya MD When: Call to make an appointment with your doctor for a postop visit in 2 and 6 weeks. Test Results: Test results from this visit will be discussed in further detail at your follow- up appointment, if applicable. Discharge Plan Admission Admit Date/Time: 02/10/22 05:35 Attending Provider: Nedra Amaya Primary Care Provider: Tim Gonzalez Discharge Orders/Prescriptions Prescriptions: New oxycodone-acetaminophen [Percocet] 5-325 mg tablet 1 tab PO Q6H PRN (Reason: pain) 7 Days Qty: 20 0RF naproxen [naproxen] 500 mg tablet 500 mg PO BID PRN PRN (Reason: Pain) Qty: 30 1RF No Action vitamin#30 30 mg iron-10 mg iron-folic acid 1 mg-omg3 capsule 30 mg iron-10 mg iron-1 mg capsule 1 cap PO DAILY levothyroxine 50 mcg tablet 50 mcg PO DAILY Referrals / Follow Up: Tim Gonzalez MD [Primary Care Provider] - Disposition Disposition (needs filled in before D/C Order can be placed): Home, Self Care
[2022-02-10] MEDS: Oxytocin 15 Units/NS 250ml 15 UNITS/250 ML IV.SOLN 83 UNITS IV (08:45)
[2022-02-10] MEDS: Ketorolac 30 MG/ML Syringe IV ×3 (09:29→21:37)
[2022-02-10] MEDS: Senna/Docusate Sodium 1 Tablet PO (10:15)
[2022-02-10] MEDS: Lactated Ringers 1,000 ML 100 ML IV (11:51)
[2022-02-10] MEDS: Enoxaparin 40 MG/0.4 ML Syringe SC (20:49)
[2022-02-10] MEDS: 0.9% Saline Lock 10 ML Syringe IV (21:38)
[2022-02-11] MEDS: Acetaminophen 500 MG Tablet 1000 MG PO ×4 (00:24→18:33)
[2022-02-11 00:26] VITALS: BP 116/77; PULSE 81; RESP 16; TEMP 36.4; O2SAT 95
[2022-02-11] MEDS: 0.9% Saline Lock 10 ML Syringe IV (04:02)
[2022-02-11] MEDS: Ketorolac 30 MG/ML Syringe IV (04:02)
[2022-02-11 04:03] VITALS: BP 112/71; PULSE 84; RESP 16; TEMP 36.4; O2SAT 96
[2022-02-11 06:39] LABS: Hematocrit 33.1 % (37-47); Hemoglobin 10.6 g/dL (12.0-15.0); Mean Corpuscular Hgb 29.7 pg (27.0-32.0); Mean Corpuscular Volume 92.7 fL (81-99); Mean Platelet Vol. 8.8 fl (6.2-12.0); Platelet Count 188 K/mm3 (150-450); RBC Distribution Width CV 14.5 % (11.6-14.6); RBC Distribution Width SD 48.4 fl (35.1-43.9); Red Blood Count 3.57 M/mm3 (4.2-5.4); White Blood Count 8.8 K/mm3 (4.4-11.0)
--- NOTE | 2022-02-11 08:00 | PCM.PN.OB ---
Subjective Subjective Patient doing well without complaints. Tolerating PO. Ambulating and voiding without difficulty. Feeding well. Denies chest pain, shortness of breath, calf pain/swelling, fevers, chills, lightheadedness. Objective Data Objective Data Vital Signs: Vital Signs Temp Pulse Resp BP Pulse Ox O2 Del Method 97.5 F L 84 16 112/71 96 Room Air 02/11/22 04:03 02/11/22 04:03 02/11/22 04:03 02/11/22 04:03 02/11/22 04:03 02/11/22 04:03 Oxygen Delivery Method Room Air Weight: 203 lb 9.6 oz Body Mass Index (BMI) 36.0 Intake & Output: Intake and Output for Last 24 Hours 02/09/22 02/10/22 02/11/22 23:59 23:59 23:59 Intake Total 1664 / 1664 Output Total 1675 / 1675 400 / 400 Balance -11 / 11 -400 / -400 Lab / Micro Data Result Diagrams: 02/11/22 06:29 Labs: Laboratory Results - last 24 hr 02/10/22 06:18: Blood Type A POSITIVE, Antibody Screen NEGATIVE 02/11/22 06:29: WBC 8.8, RBC 3.57 L, Hgb 10.6 L, Hct 33.1 L, MCV 92.7, MCH 29.7, MCHC 32.0, RDW Std Deviation 48.4 H, RDW Coeff of Angelita 14.5, Plt Count 188, MPV 8.8 Physical Exam Const alert and oriented x3 HEENT normocephalic Eyes PERRL Neck full ROM Resp normal respiratory effort GI soft to palpation GI Narrative: FF below U. Dressing dry and intact Palpation: tender other (appropriately) Assessment & Plan (1) delivery delivered: COMMENT: RLTCS SM girl [place] 39 PLAN: Plan s/p LTCS PPD # 1 1. routine post care 2. breast feeding- support given 3. rh positive 4. rubella immune
[2022-02-11] MEDS: Levothyroxine 50 MCG Tablet PO (08:10)
[2022-02-11 09:02] VITALS: BP 117/63; PULSE 81; RESP 14; TEMP 36.9
[2022-02-11] MEDS: Naproxen 500 MG Tablet PO ×2 (09:06→18:33)
[2022-02-11] MEDS: Senna/Docusate Sodium 1 Tablet PO (09:06)
[2022-02-11] MEDS: Enoxaparin 40 MG/0.4 ML Syringe SC (09:06)
[2022-02-11] MEDS: Prenatal Vits Tablet 1 TABLET PO (12:30)
[2022-02-11 14:15] VITALS: BP 115/70; PULSE 78; RESP 18; TEMP 36.8
--- NOTE | 2022-02-11 16:46 | NURSING ---
pts pressure dsg came loose after pt showered- this nurse finished removing- the medipore underneath was dry
[2022-02-11] MEDS: oxyCODONE 5 MG Tablet PO (19:42)
[2022-02-11 20:00] VITALS: BP 122/76; PULSE 81; RESP 16; TEMP 36.8; O2SAT 98
[2022-02-12] MEDS: Acetaminophen 500 MG Tablet 1000 MG PO ×2 (00:31→06:32)
[2022-02-12] MEDS: Naproxen 500 MG Tablet PO ×2 (02:34→08:46)
[2022-02-12 02:40] VITALS: BP 107/61; PULSE 81; RESP 15; TEMP 37.2; O2SAT 95
[2022-02-12] MEDS: Levothyroxine 50 MCG Tablet PO (06:11)
[2022-02-12 08:13] VITALS: BP 121/64; PULSE 79; RESP 16; TEMP 36.7; O2SAT 95
--- NOTE | 2022-02-12 08:21 | PCM.PN.OB ---
Subjective Subjective Patient doing well without complaints. Tolerating PO. Ambulating and voiding without difficulty. Feeding well. Denies chest pain, shortness of breath, calf pain/swelling, fevers, chills, lightheadedness. Objective Data Objective Data Vital Signs: Vital Signs Temp Pulse Resp BP Pulse Ox O2 Del Method 98.0 F 79 16 121/64 H 95 Room Air 02/12/22 08:13 02/12/22 08:13 02/12/22 08:13 02/12/22 08:13 02/12/22 08:13 02/12/22 08:13 Oxygen Delivery Method Room Air Weight: 203 lb 9.6 oz Body Mass Index (BMI) 36.0 Intake & Output: Intake and Output for Last 24 Hours 02/10/22 02/11/22 02/12/22 23:59 23:59 23:59 Intake Total 1664 / 1664 Output Total 1675 / 1675 400 / 400 Balance -11 / -11 -400 / -400 Lab / Micro Data Attestation: I reviewed the patient's lab results. Result Diagrams: 02/11/22 06:29 ROS Constitutional Constitutional: Reports systems reviewed and no addt'l complaints, except as documented Eyes Eyes: Denies change in vision ENT HEENT: Reports systems reviewed and no addt'l complaints, except as documented; Denies headache(s) Cardiovascular Cardiovascular: Reports systems reviewed and no addt'l complaints, except as documented; Denies chest pain or dyspnea Respiratory/Chest Respiratory/Chest: Reports systems reviewed and no addt'l complaints, except as documented Gastrointestinal Gastrointestinal: Reports systems reviewed and no addt'l complaints, except as documented; Denies abdominal pain Genitourinary Genitourinary: Reports systems reviewed and no addt'l complaints, except as documented; Denies dysuria Musculoskeletal Musculoskeletal: Reports systems reviewed and no addt'l complaints, except as documented Neurologic Neurologic: Reports systems reviewed and no addt'l complaints, except as documented Endocrine Endocrinology: Reports systems reviewed and no addt'l complaints, except as documented Physical Exam Const alert and oriented x3 HEENT normocephalic Eyes PERRL Neck full ROM Resp normal respiratory effort GI soft to palpation GI Narrative: FF below U. Dressing dry and intact Palpation: tender other (appropriately) Assessment & Plan (1) delivery delivered: COMMENT: RLTCS SM girl [place] 39 PLAN: s/p LTCS PPD # 2 1. routine post care 2. bottle feeding 3. rh positive 4. rubella immune 5. d/c home today (2) Hypothyroidism: COMMENT: continue on Synthroid
[2022-02-12] MEDS: oxyCODONE 5 MG Tablet PO (08:46)
[2022-02-12 10:28] VITALS: BP 123/75; PULSE 84; RESP 16; TEMP 36.4; O2SAT 97
== END 2022-02-12 11:00 | disposition home or self-care (01) | DRG 788 ==
PROVIDERS: Admitting Provider Obstetrics & Gynecology; PCP Family Medicine; Visit Provider Obstetrics & Gynecology
PROC: 10D00Z1 Extraction of Products of Conception, Low, Open Approach (ICD-10-PCS; CPT 59514; principal; 2022-02-10 07:15)
DX: O99.284 Endocrine, nutritional and metabolic diseases complicating childbirth (principal); E03.9 Hypothyroidism, unspecified; Z3A.38 38 weeks gestation of pregnancy; Z37.0 Single live birth; O34.219 Maternal care for unspecified type scar from previous cesarean delivery
CPT/HCPCS: 59025; 59050; 85025; 85027; 86850; 86900; 86901; 99218; 99251; J7120; A4216; G0378; G0463

== ENCOUNTER → 2022-04-07 | Outpatient (CLI) | payer BC, SELFPAY ==
[2022-04-10 21:53] LABS: HPV APTIMA, High Risk Negative (Negative)
== END | disposition home or self-care (01) ==
LOC: LABSPEC 12:14
PROVIDERS: PCP Family Medicine; Visit Provider Nurse Practitioner Women's Health
DX: Z12.4 Encounter for screening for malignant neoplasm of cervix (principal)
CPT/HCPCS: 87624; 88175; G0145

== ENCOUNTER 2022-06-09 09:32 | Emergency (ER) | payer BC, SELFPAY ==
[2022-06-09 09:32] VITALS: BP 114/94; PULSE 78; RESP 16; TEMP 36.2; O2SAT 97
--- NOTE | 2022-06-09 10:20 | ED.VIS.BACK ---
HPI History of Present Illness Chief Complaint: Back Informant: patient Onset/Context/Timing Onset: Yesterday Context: Gradual Onset Timing: Continuous Quality: - (Stabbing) Location: Lumbar Worsened by: improves with Movement and - (Sitting upright) Relieved by: - (Laying down) Associated Symptoms Associated Symptoms: Radiation to Right Leg and Radiation to Left Leg; Negative for Numbness, Tingling, Fever, Abdominal Pain, Dysuria, Unable to Ambulate, Unable to Transfer, Urinary Retention, Urinary Incontinence, Constipation or Fecal Incontinence Narrative Narrative: Patient presents with back pain that began yesterday. Patient states it is gradually getting worse. Patient states it is constant. Patient describes it as stabbing. Patient states it is over the lumbar area. Patient states it is worse with movement and with sitting upright. Patient states it is better with laying down. Patient states she took a dose of oxycodone which she had from her prior section. Patient states this did not help at all. Patient states the pain does radiate down both lower extremities. Patient denies any numbness or tingling. Patient denies any weakness. Patient denies any bowel or bladder changes. Patient denies any saddle anesthesia. [facility] Medical History Infertility Thyroid disorder Home Medications etonogestrel 0.12 mg-ethinyl estradiol 0.015 mg/24 hr vaginal ring (NuvaRing) 1 vag ring vaginal Q4W #3 ea 04/08/22 [Rx Last Taken Unknown] cyclobenzaprine 10 mg tablet 10 mg PO QHS PRN PRN Muscle Spasm #10 TABLETS 06/09/22 [Rx Last Taken Unknown] hydrocodone-acetaminophen 5-325mg 5mg-325mg 1 tab PO Q6H PRN PRN Pain 3 days #10 TABLETS 06/09/22 [Rx Last Taken Unknown] Allergy/AdvReac Type Severity Reaction Status Date / Time amoxicillin AdvReac Intermediate rash Verified 04/07/22 11:30 sulfamethoxazole AdvReac Intermediate rash Verified 04/07/22 11:30 [From ] trimethoprim [From ] AdvReac Intermediate rash Verified 04/07/22 11:30 Family History Grandfather Myocardial infarction Aunt Breast cancer great aunt Surgical History H/O knee surgery S/P Social History current occupational status: employed current occupation: [employer] Smoking Status: Never smoker alcohol intake: current details: social- pre substance use type: does not use caffeine: Yes what type of physical activity do you participate in: walking seatbelt use: always do you feel safe at home: Yes additional social history: [employer] ROS ROS ED Constitutional Constitutional ED: Denies chills or fever(s) Eyes Eyes: Denies blurry vision or change in vision ENT ENT ED: Denies rhinorrhea or sore throat Cardiovascular Cardiovascular: Denies chest pain or palpitations Respiratory/Chest Respiratory/Chest: Denies cough or dyspnea Gastrointestinal Gastrointestinal: Denies nausea or vomiting Genitourinary Genitourinary ED: Denies dysuria or hematuria Musculoskeletal Musculoskeletal: Reports back pain; Denies neck pain Integumentary Denies abscess or rash Neurologic Neurologic: Denies headache(s) or weakness Allergic/Immunologic Allergic/Immunologic ED: Denies mouth swelling or urticaria EXAM Physical Exam Const Vital Signs: 06/09/22 09:32 Temperature 97.2 F L Temperature Source Temporal Pulse Rate 78 Respiratory Rate 16 Blood Pressure 114/94 H Blood Pressure Mean 100 Pulse Ox 97 Oxygen Delivery Method Room Air Positive well nourished and well developed General Appearance ED: well developed HEENT Reports moist mucous membranes Neck supple and no JVD Resp normal respiratory effort and clear to auscultation bilaterally Cardio regular rate, regular rhythm and no murmurs GI normal to inspection, nondistended, normoactive bowel sounds and non-tender Palpation: soft Back/Spine Back/Spine Narrative: There is tenderness and spasm over the lumbar paraspinal muscles. There is no midline tenderness. There is no bony crepitance or step-off. There is pain in her low back with straight leg raising to approximately 60 degrees. There is no radicular pain with this. Range of motion was limited in all motions of the lumbar spine secondary to pain. Strength is 5/5 bilaterally in the lower extremities. There are no sensory deficits noted. Deep tendon reflexes were 2/4 bilaterally in the lower extremities. Lumbar Spine / Lower Back: ROM limited and straight leg raise negative bilaterally Extremity normal to inspection General Extremety ED: Negative for edema or tenderness General Extremity: Negative for edema Neuro oriented x3, CN's II-XII intact bilaterally and no sensory deficits noted Sensorium / Orientation: alert Motor Exam: strength 5/5 throughout Deep Tendon Reflexes: Rt Patellar (L4): 2+, Lt Patellar (L4): 2+, Rt Ankle (S1): 2+ and Lt Ankle (S1): 2+ Deep Tendon Reflexes Back: Rt Patellar (L4): 2+, Lt Patellar (L4): 2+, Rt Ankle (S1): 2+ and Lt Ankle (S1): 2+ Psych mental status grossly normal Skin no rashes or lesions noted MDM MDM MDM Narrative Medical decision making narrative: Differential diagnosis includes musculoskeletal strain, degenerative disc disease, and bulging disks. Since the patient did not fall and there was no trauma to her back, I do not feel fractures in the differential diagnosis. I do not feel x-rays are necessary at this time. Patient is agreeable with this. Patient was given a dose of morphine and Norflex here. Patient was instructed to use moist heat to the area. Patient was given a prescription for short course of Norflex and [place]. Patient was instructed to follow-up with her primary care physician in 5 to 7 days. Patient was also given referral for orthopedic spine. Patient was instructed to return if worse in any way. Patient understood and was agreeable with the plan. All questions were answered. Discharge Plan Triage Chief Complaint: Back ED Provider: Anthony Marks Dx/Rx/DC Orders Clinical Impression: Acute lumbosacral myofascial strain, Acute bilateral low back pain Instructions: ED Back Pain (Acute or Chronic), ED Back Sprain/Strain Prescriptions: New cyclobenzaprine [cyclobenzaprine] 10 mg tablet 10 mg PO QHS PRN PRN (Reason: Muscle Spasm) Qty: 10 0RF hydrocodone-acetaminophen [hydrocodone-acetaminophen] 5-325 mg tablet 1 tab PO Q6H PRN PRN (Reason: Pain) 3 Days Qty: 10 0RF No Action etonogestrel-ethinyl estradiol [NuvaRing] 0.12-0.015 mg/24 hr ring 1 vag ring vaginal Q4W Qty: 3 4RF Primary Care Provider: Tim Gonzalez Referrals: Tim Gonzalez MD [Primary Care Provider] - 5-7 Days Elvin Edgar DO [Med Staff - Active Staff] - 5-7 Days Disposition Disposition: Home, Self Care
[2022-06-09] MEDS: Morphine 4 MG/ML Syringe IM (10:45)
[2022-06-09] MEDS: Orphenadrine 60 MG/2 ML Ampul IM (10:46)
[2022-06-09 11:33] VITALS: BP 129/88; PULSE 62; RESP 15; O2SAT 100
== END 2022-06-09 11:33 | disposition home or self-care (01) ==
PROVIDERS: Emergency Provider Emergency Medicine; PCP Family Medicine; Visit Provider Emergency Medicine
DX: S39.012A Strain of muscle, fascia and tendon of lower back, initial encounter (principal); X58.XXXA Exposure to other specified factors, initial encounter
CPT/HCPCS: 96372; 99283

== ENCOUNTER → 2022-08-21 | Outpatient (CLI) | payer BC, SELFPAY ==
[2022-08-21 12:01] LABS: Cholesterol 181 mg/dL (200); Glucose 92 mg/dL (74-106); High Density Lipoprotein 44 mg/dL; Thyroid Stim Hormone (TSH) 1.77 uIU/mL (0.358-3.74); Triglycerides 127 mg/dL; Very Low Density Lipoprotein 25 mg/dL (5-40)
== END | disposition home or self-care (01) ==
LOC: LAB 09:51
PROVIDERS: PCP Internal Medicine; Referring Provider Internal Medicine; Visit Provider Internal Medicine
DX: Z00.01 Encounter for general adult medical examination with abnormal findings (principal); R79.89 Other specified abnormal findings of blood chemistry
CPT/HCPCS: 36415; 80061; 82947; 84443

== ENCOUNTER → 2024-01-14 | Outpatient (CLI) | payer BC, SELFPAY ==
[2024-01-14 11:21] LABS: ALB/GLOB Ratio 1.2 RATIO (0.9-2.4); AST(SGOT) 13 U/L (15-37); Alanine Aminotransfer ALT/SGPT 23 U/L (13-56); Albumin, Serum 4.1 g/dL (3.2-5.0); Alkaline Phosphatase 38 U/L (45-117); Anion Gap 3 (5-15); BUN 28 mg/dL (7-18); BUN/Creat Ratio 29.9 RATIO (10-20); Calcium,Total 9.2 mg/dL (8.5-10.1); Chloride 109 mmol/L (98-107); Creatinine, Serum 0.94 mg/dL (0.55-1.02); EST Glomerular Filtration Rate 74 mL/min (>60); Est Glom Filt Rate - Afr Amer 89 mL/min (>60); Globulin 3.3 g/dL (2.2-4.2); Glucose 89 mg/dL (74-106); Potassium 4.6 mmol/L (3.5-5.1); Protein, Total 7.4 g/dL (6.4-8.2); Sodium Level 140 mmol/L (136-145); T4 Free Direct 0.78 ng/dL (0.76-1.46)
[2024-01-15 10:59] LABS: Vitamin D,25 Hydroxy 21.9 ng/mL
== END | disposition home or self-care (01) ==
LOC: LAB 10:09
PROVIDERS: PCP Student in an Organized Health Care Education/Training Program; Referring Provider Nurse Practitioner Family; Visit Provider Nurse Practitioner Family
DX: E03.9 Hypothyroidism, unspecified (principal); L65.9 Nonscarring hair loss, unspecified; Z13.21 Encounter for screening for nutritional disorder
CPT/HCPCS: 36415; 80053; 82306; 84439; 84443